=== PATIENT | male | born 1935 | race Caucasian/White ===

== ENCOUNTER → 2016-06-12 | Outpatient (CLI) | payer MEDICARE ==
[2016-06-12 10:44] LABS: CALCIUM 8.7 mg/dL (8.5-10.1); GFR 71.7
== END | disposition home or self-care (01) ==
LOC: LAB 10:16
PROVIDERS: ATTEND Internal Medicine
DX: R73.01 Impaired fasting glucose (principal)
CPT/HCPCS: 36415; 80048; 83036

== ENCOUNTER 2016-07-20 09:36 | Inpatient (IN) | payer MEDICARE ==
[~2016-07-20] VITALS: Ht 180.3 cm; Wt 96.2 kg
[2016-07-20] MEDS ORDERED: IV NORMAL SALINE 1000ML BAG 1,000 ML IV ONE (10:30)
[2016-07-20] MEDS ORDERED: ONDANSETRON PF 4 MG/2 ML VIAL. IV ONE (10:30)
[2016-07-20 10:33] LABS: BASO % 0 % (0-3); EOS % 0 % (0-3); HEMATOCRIT 47.8 % (39.0-53.0); HEMOGLOBIN 15.9 g/dL (13.0-17.5); LYMPH # 1.8 x10^3/uL (1.0-4.8); LYMPH % 12 % (24-48); MEAN CORPUSCULAR HEMOGLOBIN 30 pg (25-35); MEAN CORPUSCULAR HGB CONC 33 g/dL (31-37); MEAN CORPUSCULAR VOLUME 89 fL (79-100); MONO % 14 % (0-9); NEUT % 74 % (31-73); PLATELET COUNT 162 x10^3/uL (140-400); RED BLOOD COUNT 5.38 x10^6/uL (4.30-5.70); RED CELL DISTRIBUTION WIDTH 13.3 % (11.5-14.5)
--- NOTE | 2016-07-20 10:40 | EKG ---
[facility] [address] [place] [address] Test Date: 2016-07-20 Test Time: 09:54:56 Pat Name: JANET GIRON Department: Room: Gender: M Chocolate Dipper: : 1935 Requested By: HANNA AMANDA Order Number: [id number] Reading MD: Kisha Mandujano Measurements Intervals [place] Rate: 115 P: -9 UT: 188 QRS: -5 QRSD: 108 T: 27 QT: 290 QTc: 403 Interpretive Statements SINUS TACHYCARDIA VENTRICULAR PREMATURE COMPLEX(ES) LEFTWARD AXIS RI6.01 No previous ECG available for comparison Electronically Signed On 07-23-2016 18:35:15 CDT by Kisha Mandujano
[2016-07-20 10:44] LABS: INR 1.1 (0.8-1.1); PROTHROMBIN TIME PATIENT 13.6 SEC (11.7-14.0)
[2016-07-20 10:48] LABS: CALCIUM 8.7 mg/dL (8.5-10.1); CREATININE 1.1 mg/dL (0.7-1.3); GFR 64.2; POTASSIUM 4.1 mmol/L (3.5-5.1)
[2016-07-20 10:57] LABS: NEG OBC FOB NEG; POS OBC FOB POS
[2016-07-20 10:59] LABS: ALBUMIN 2.7 g/dL (3.4-5.0); ALBUMIN/GLOBULIN RATIO 0.7 (1.0-1.7); TOTAL BILIRUBIN 1.6 mg/dL (0.2-1.0); TOTAL PROTEIN 6.6 g/dL (6.4-8.2)
[2016-07-20] MEDS: FENTANYL PF 100 MCG/2 ML VIAL. IV PRN ×2 (11:20→14:31)
[2016-07-20] MEDS ORDERED: IOHEXOL 300 MG/ML 75 ML VIAL IV ONE (11:30)
[2016-07-20] MEDS ORDERED: CONTRAST GIVEN MC PRN (11:30)
[2016-07-20 12:54] LABS: BILIRUBIN,URINE NEGATIVE (NEG); GLUCOSE,URINE NEGATIVE (NEG); NITRITE,URINE NEGATIVE (NEG); PH,URINE 6.5; PROTEIN,URINE NEGATIVE (NEG-TRACE)
[2016-07-20 12:55] LABS: BACTERIA,URINE 0 /HPF (0-FEW); WBC,URINE 0 /HPF (0-4)
--- NOTE | 2016-07-20 13:13 | RAD ---
CT of the abdomen and pelvis with contrast, 07/20/2016: History: Abdominal pain and vomiting Multidetector CT imaging was performed following an IV bolus injection of iodinated contrast material. No oral contrast material was administered for this study. The gallbladder is surgically absent. No hepatic abnormality is seen. The pancreas is unremarkable. There is a 15 mm low-density mass arising from the anterior aspect of the left kidney. It demonstrates an internal CT number of 32 Hounsfield units. This is higher than a simple cyst. This may be a complicated cyst or solid mass. The kidneys show no evidence of obstruction. No adrenal abnormality is detected. Moderate aortoiliac calcific plaquing is present without evidence of aneurysm. No abdominal or pelvic adenopathy is seen. There are numerous diverticula scattered throughout the colon. There is mural thickening in the mid to distal sigmoid colon with considerable paracolic streaky inflammation. The findings suggest acute diverticulitis. No discrete paracolic abscess is identified. There is no evidence of bowel obstruction. No free air or free fluid is evident in the abdomen or pelvis. IMPRESSION: 1. Extensive colonic diverticulosis. 2. Mural thickening and paracolic inflammation in the mid to distal sigmoid colon compatible with acute diverticulitis. An underlying colonic neoplasm cannot be excluded. 3. Small left renal mass compatible with a complicated cyst versus a solid mass. PQRS Compliance Statement: One or more of the following individualized dose reduction techniques were utilized for this examination: 1. Automated exposure control 2. Adjustment of the mA and/or kV according to patient size 3. Use of iterative reconstruction technique
[2016-07-20] MEDS ORDERED: METRONIDAZOLE 500mg PREMIX 100 ML IV ONE (13:30)
[2016-07-20] MEDS ORDERED: CIPROFLOXACIN 400MG PREMIX 200 ML IV ONE (13:33)
[2016-07-20] MEDS ORDERED: ONDANSETRON PF 4 MG/2 ML VIAL. IV PRN (13:45)
--- NOTE | 2016-07-20 13:46 | PHYS DOC ---
Past Medical History Past Medical History: GERD, Hypertension, Other Additional Past Medical Histor: BPH Past Surgical History: Appendectomy, Cholecystectomy, Tonsillectomy, Other Additional Past Surgical Histo: COLON RESECTION Alcohol Use: None Drug Use: None Adult General Chief Complaint Chief Complaint: NAUSEA/VOMITING/DIARRHA HPI HPI Patient is a 80 year old male who presents with abdominal pain. Patient reports 2 day history of severe suprapubic abdominal pain. Reports associated nausea, vomiting 1 this morning, loose stools and dark stools this morning. Denies fevers or chills, hematemesis, dysuria or hematuria. Reports urinary frequency. 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 PCP is Dr. Segovia. Review of Systems Review of Systems Constitutional: Denies fever or chills Eyes: Denies change in visual acuity HENT: Denies nasal congestion or sore throat Respiratory: Denies cough or shortness of breath Cardiovascular: Denies chest pain or edema GI: Reports abdominal pain, nausea, vomiting, and diarrhea, denies bloody stools : Denies dysuria or hematuria Musculoskeletal: Denies back pain or joint pain Integument: Denies rash or skin lesions Neurologic: Denies headache, focal weakness or sensory changes Current Medications Current Medications Current Medications Medications (Trade) Dose Ordered Sig/Filomena Start Time Stop Time Status Last Admin Dose Admin Ciprofloxacin Lactate (Cipro 400mg Premix) 200 ml @ 200 mls/hr ONCE ONCE 07/20/16 13:33 07/20/16 14:32 Fentanyl Citrate (Fentanyl 2ml Vial) 50 mcg PRN Q15MIN PRN 07/20/16 10:30 07/21/16 10:29 07/20/16 11:20 50 MCG Info 1 each 1 each PRN DAILY PRN 07/20/16 11:30 07/22/16 11:29 Iohexol (Omnipaque 300 Mg/ml) 75 ml 1X ONCE 07/20/16 11:30 07/20/16 11:31 DC 07/20/16 12:25 75 ML Metronidazole 100 ml @ 100 mls/hr 1X ONCE 07/20/16 13:30 07/20/16 14:29 Morphine Sulfate 4 mg 4 mg PRN Q2HR PRN 07/20/16 13:45 07/21/16 13:44 UNV Ondansetron HCl (Zofran) 4 mg PRN Q8HRS PRN 07/20/16 13:45 07/21/16 13:44 UNV Sodium Chloride (Iv Sodium Chloride 0.9% 1000ml Bag) 1,000 ml @ 100 mls/hr Q10H 07/20/16 13:31 07/21/16 13:30 UNV Allergies Allergies Allergies Coded Allergies Type Severity Reaction Last Updated Verified No Known Drug Allergies 07/20/16 No Physical Exam Physical Exam Constitutional: Well developed, well nourished, appears uncomfortable, non- toxic appearance. HENT: Normocephalic, atraumatic, bilateral external ears normal, oropharynx moist, nose normal. Eyes: conjunctiva normal, no discharge. Neck: supple, no stridor. Cardiovascular: Tachycardic, regular, no murmurs, no edema. Lungs & Thorax: LCTAB, no wheezing, no respiratory distress. Abdomen: Normal bowel sounds, soft, suprapubic tenderness otherwise nontender, no rebound or guarding, no masses or pulsatile masses, nondistended. Skin: Warm, dry, no erythema, no rash. Back: No tenderness, no CVA tenderness. Extremities: No tenderness, no edema. Neurologic: Alert and oriented X 3, no focal deficits noted. Psychologic: Affect normal, judgement normal, mood normal. Current Patient Data Vital Signs Vital Signs Date Time Temp Pulse Resp B/P Pulse Ox O2 Delivery O2 Flow Rate FiO2 07/20/16 09:36 97.8 113 20 154/69 93 Room Air 97.8 Lab Values Laboratory Tests Test 07/20/16 10:14 07/20/16 12:10 07/20/16 12:20 White Blood Count 15.0x10^3/uL (4.0-11.0) H Red Blood Count 5.38x10^6/uL (4.30-5.70) Hemoglobin 15.9g/dL (13.0-17.5) Hematocrit 47.8% (39.0-53.0) Mean Corpuscular Volume 89fL (79-100) Mean Corpuscular Hemoglobin 30pg (25-35) Mean Corpuscular Hemoglobin Concent 33g/dL (31-37) Red Cell Distribution Width 13.3% (11.5-14.5) Platelet Count 162x10^3/uL (140-400) Neutrophils (%) (Auto) 74% (31-73) H Lymphocytes (%) (Auto) 12% (24-48) L Monocytes (%) (Auto) 14% (0-9) H Eosinophils (%) (Auto) 0% (0-3) Basophils (%) (Auto) 0% (0-3) Neutrophils # (Auto) 11.1x10^3uL (1.8-7.7) H Lymphocytes # (Auto) 1.8x10^3/uL (1.0-4.8) Monocytes # (Auto) 2.1x10^3/uL (0.0-1.1) H Eosinophils # (Auto) 0.0x10^3/uL (0.0-0.7) Basophils # (Auto) 0.0x10^3/uL (0.0-0.2) Prothrombin Time 13.6SEC (11.7-14.0) Prothrombin Time INR 1.1 (0.8-1.1) PTT 35SEC (24-38) Stool Occult Blood Negative (NEG) Sodium Level 138mmol/L (136-145) Potassium Level 4.1mmol/L (3.5-5.1) Chloride Level 101mmol/L (98-107) Carbon Dioxide Level 26mmol/L (21-32) Anion Gap 11 (6-14) Blood Urea Nitrogen 15mg/dL (8-26) Creatinine 1.1mg/dL (0.7-1.3) Estimated GFR (Cockcroft-Gault) 64.2 BUN/Creatinine Ratio 14 (6-20) Glucose Level 188mg/dL (70-99) H Calcium Level 8.7mg/dL (8.5-10.1) Total Bilirubin 1.6mg/dL (0.2-1.0) H Aspartate Amino Transferase (AST) 35U/L (15-37) Alanine Aminotransferase (ALT) 46U/L (16-63) Alkaline Phosphatase 101U/L (46-116) Troponin I Quantitative < 0.017ng/mL (0.000-0.055) Total Protein 6.6g/dL (6.4-8.2) Albumin 2.7g/dL (3.4-5.0) L Albumin/Globulin Ratio 0.7 (1.0-1.7) L Lactic Acid Level 1.4mmol/L (0.4-2.0) Urine Collection Type Unknown Urine Color Cecille Urine Clarity Clear Urine pH 6.5 Urine Specific [place] 1.025 Urine Protein Negativemg/dL (NEG-TRACE) Urine Glucose (UA) Negativemg/dL (NEG) Urine Ketones (Stick) Negativemg/dL (NEG) Urine Blood Negative (NEG) Urine Nitrite Negative (NEG) Urine Bilirubin Negative (NEG) Urine Urobilinogen Dipstick 1.0mg/dL (0.2 mg/dL) Urine Leukocyte Esterase Negative (NEG) Urine RBC 11-20/HPF (0-2) Urine WBC 0/HPF (0-4) Urine Bacteria 0/HPF (0-FEW) Urine Mucus Mod/LPF Laboratory Tests 07/20/16 10:14 Laboratory Tests 07/20/16 10:14 EKG EKG Interpreted by me: Sinus tachycardia rate 115, no acute ST or T wave changes, normal intervals, PVC [] Radiology/Procedures Radiology/Procedures PROCEDURE: ABD PELV W/ IV CONTRAST ONLY CT of the abdomen and pelvis with contrast, 07/20/2016: History: Abdominal pain and vomiting Multidetector CT imaging was performed following an IV bolus injection of iodinated contrast material. No oral contrast material was administered for this study. The gallbladder is surgically absent. No hepatic abnormality is seen. The pancreas is unremarkable. There is a 15 mm low-density mass arising from the anterior aspect of the left kidney. It demonstrates an internal CT number of 32 Hounsfield units. This is higher than a simple cyst. This may be a complicated cyst or solid mass. The kidneys show no evidence of obstruction. No adrenal abnormality is detected. Moderate aortoiliac calcific plaquing is present without evidence of aneurysm. No abdominal or pelvic adenopathy is seen. There are numerous diverticula scattered throughout the colon. There is mural thickening in the mid to distal sigmoid colon with considerable paracolic streaky inflammation. The findings suggest acute diverticulitis. No discrete paracolic abscess is identified. There is no evidence of bowel obstruction. No free air or free fluid is evident in the abdomen or pelvis. IMPRESSION: 1. Extensive colonic diverticulosis. 2. Mural thickening and paracolic inflammation in the mid to distal sigmoid colon compatible with acute diverticulitis. An underlying colonic neoplasm cannot be excluded. 3. Small left renal mass compatible with a complicated cyst versus a solid mass. PQRS Compliance Statement: One or more of the following individualized dose reduction techniques were utilized for this examination: 1. Automated exposure control 2. Adjustment of the mA and/or kV according to patient size 3. Use of iterative reconstruction technique DICTATED and SIGNED BY: CJ BEST MD DATE: 07/20/16 1031[] Course & Med Decision Making Course & Med Decision Making Pertinent Labs and Imaging studies reviewed. (See chart for details) Patient presents with abdominal pain and vomiting. Administered IV fluids, Zofran, pain medication. Obtained labs and CT. Found to have diverticulitis. Administered Cipro and Flagyl, recommended admission to the hospital for further evaluation. Patient agrees with plan of care. Discussed with Dr. Guerra who agrees to admit to inpatient status. GI consult to Dr. Diop. Patient admitted in stable condition. [] Dragon Disclaimer Dragon Disclaimer This electronic medical record was generated, in whole or in part, using a voice recognition dictation system. Departure Departure Impression: Primary Impression: Abdominal pain Additional Impressions: Acute diverticulitis Nausea & vomiting Disposition: ADMITTED INPATIENT Admitting Physician: Seema Guerra Condition: STABLE Problem Qualifiers HANNA AMANDA MD Jul 20, 2016 13:45
--- NOTE | 2016-07-20 14:30 | ACF ---
Admission Forms Criteria ABDOMINAL PAIN Clinical Indications for Admission to Inpatient Care (Place 'X' for any and all applicable criteria): Admission is indicated for ANY ONE of the following(1)(2)(3)(4)(5): [X]I. Inpatient admission required rather than observation care (Also use Abdominal Pain: Observation Care, as appropriate) because of ANY ONE of the following: [ ]a) Severe pain requiring acute inpatient management [X]b) Identification of etiology/finding that requires inpatient care (eg, aortic dissection, free air) [ ]c) Absent bowel sounds with complete ileus(6) [ ]d) Suspected toxic megacolon [ ]e) Severe electrolyte abnormalities requiring inpatient care [ ]f) High fever or infection requiring inpatient admission as indicated by ANY ONE of following(7)(8): [ ] i) Appropriate outpatient or observational care antimicrobial treatment unavailable, not effective, or not feasible [ ] ii) Documented bacteremia [ ] iii) Temperature > 104.9 degrees F (oral) [ ] iv) T >103.1 F (oral) or < 96.8 F(rectal) that does not respond to all emergency treatment measures [ ]g) Signs of intestinal obstruction [B] [ ]h) Hemodynamic instability [ ]i) IV fluid to replace significant ongoing losses (greater than 3 L/m2 per day) (12)(13) [ ]j) Percutaneous or open drainage (eg, abscess, biliary tract ) procedures [ ]k) Parenteral nutrition regimen that must be implemented on inpatient basis [ ]l) Other condition,treatment or monitoring requiring inpatient admission. [ ]II. Peritoneal signs present [ ]III. Surgery needed that cannot be performed on an ambulatory basis. [ ]IV. Evaluation requires patient to not eat or drink for extended period ( eg, more than 24 hours). [ ]V. Contraindications and/or Inappropriate clinical situations for Observational Care in patients with abdominal pain, when ANY ONE of the following is required: [ ]a) Thorough evaluation is required to prevent catastrophic events due to delays in diagnosing (e.g.Mesenteric ischemia) 1,3 [ ]b) Patient with severe pathology or with chronic symptoms unlikely to improve in the ED stay (3) [ ]. General contraindications and/or Inappropriate clinical situations for Observational Care in patients with abdominal pain, when ANY ONE of the following is required: [ ]a) Prediction of prolongation of LOS based on ANY ONE of the following may be considered as a contraindication for observational care 2, 3, 4, 5, 6, 7, 8, 9, 10, 11 [ ]i) Age > 65 yrs. [ ]ii) Patient arriving by ambulance [ ]iii) Patient with high acuity [ ]iv) Patient requiring vital sign monitoring [ ]v) Patient on IV medication [ ]b) Systolic blood pressures 180mmHg 3,12 [ ]c) Patient with altered mental status including delirium and other alteration of consciousness, (3) [ ]d) Patient whose discharge disposition will be to a senior living home or rehabilitation home should not be managed in Emergency Department Observation Unit. CMS rule requires 3 days hospital stay before such placement.3,13 [ ]e) Patient with failure to thrive due to broad array of etiologies 3,16,17 [ ]f) Inability to ambulate 3,14 Extended stay beyond goal length of stay may be needed for(2)(3): [ ]a) Persistent abdominal pain with suspected intra-abdominal process [ ]b) Diagnosed condition requiring continued stay (e.g., pancreatitis, complicated diverticulitis) [ ]c) Surgery (e.g., colectomy) The original [facility] content created by [employer] has been revised. The portions of the content which have been revised are identified through the use of italic text or in bold, and [facility] has neither reviewed nor approved the modified material.All other unmodified content is copyright [employer]. Please see references footnoted in the original [facility] edition 2016 Admission Criteria Met?: Yes CATIE DALEY Jul 20, 2016 14:30
[2016-07-20] MEDS: IV NORMAL SALINE 1000ML BAG 1,000 ML IV SCH (14:36)
[2016-07-20 16:00] VITALS: BP 151/61
--- NOTE | 2016-07-20 16:05 | PDOC ---
PROGRESS NOTES Subjective Subjective Pt. with diverticulitis Objective Objective Vital Signs Date Time Temp Pulse Resp B/P Pulse Ox O2 Delivery O2 Flow Rate FiO2 07/20/16 09:36 97.8 113 20 154/69 93 Room Air 97.8 Physical Exam Physical Exam right renal lesion on CT Assessment Assessment right renal lesion bph microhematuria Problems Medical Problems: (1) Abdominal pain Status: Acute (2) Acute diverticulitis Status: Acute (3) Nausea & vomiting Status: Acute Plan Plan of Care continue flomax and proscar f/[place] [place] the next month for follow up of left renal mass and microhematuria Comment Review of Relevant I have reviewed the following items orion (where applicable) has been applied. Labs Laboratory Tests Test 07/20/16 10:14 07/20/16 12:10 07/20/16 12:20 White Blood Count 15.0x10^3/uL (4.0-11.0) Red Blood Count 5.38x10^6/uL (4.30-5.70) Hemoglobin 15.9g/dL (13.0-17.5) Hematocrit 47.8% (39.0-53.0) Mean Corpuscular Volume 89fL (79-100) Mean Corpuscular Hemoglobin 30pg (25-35) Mean Corpuscular Hemoglobin Concent 33g/dL (31-37) Red Cell Distribution Width 13.3% (11.5-14.5) Platelet Count 162x10^3/uL (140-400) Neutrophils (%) (Auto) 74% (31-73) Lymphocytes (%) (Auto) 12% (24-48) Monocytes (%) (Auto) 14% (0-9) Eosinophils (%) (Auto) 0% (0-3) Basophils (%) (Auto) 0% (0-3) Neutrophils # (Auto) 11.1x10^3uL (1.8-7.7) Lymphocytes # (Auto) 1.8x10^3/uL (1.0-4.8) Monocytes # (Auto) 2.1x10^3/uL (0.0-1.1) Eosinophils # (Auto) 0.0x10^3/uL (0.0-0.7) Basophils # (Auto) 0.0x10^3/uL (0.0-0.2) Prothrombin Time 13.6SEC (11.7-14.0) Prothromb Time International Ratio 1.1 (0.8-1.1) Activated Partial Thromboplast Time 35SEC (24-38) Stool Occult Blood Negative (NEG) Sodium Level 138mmol/L (136-145) Potassium Level 4.1mmol/L (3.5-5.1) Chloride Level 101mmol/L (98-107) Carbon Dioxide Level 26mmol/L (21-32) Anion Gap 11 (6-14) Blood Urea Nitrogen 15mg/dL (8-26) Creatinine 1.1mg/dL (0.7-1.3) Estimated GFR (Cockcroft-Gault) 64.2 BUN/Creatinine Ratio 14 (6-20) Glucose Level 188mg/dL (70-99) Calcium Level 8.7mg/dL (8.5-10.1) Total Bilirubin 1.6mg/dL (0.2-1.0) Aspartate Amino Transf (AST/SGOT) 35U/L (15-37) Alanine Aminotransferase (ALT/SGPT) 46U/L (16-63) Alkaline Phosphatase 101U/L (46-116) Troponin I Quantitative < 0.017ng/mL (0.000-0.055) Total Protein 6.6g/dL (6.4-8.2) Albumin 2.7g/dL (3.4-5.0) Albumin/Globulin Ratio 0.7 (1.0-1.7) Lactic Acid Level 1.4mmol/L (0.4-2.0) Urine Collection Type Unknown Urine Color Cecille Urine Clarity Clear Urine pH 6.5 Urine Specific [place] 1.025 Urine Protein Negativemg/dL (NEG-TRACE) Urine Glucose (UA) Negativemg/dL (NEG) Urine Ketones (Stick) Negativemg/dL (NEG) Urine Blood Negative (NEG) Urine Nitrite Negative (NEG) Urine Bilirubin Negative (NEG) Urine Urobilinogen Dipstick 1.0mg/dL (0.2 mg/dL) Urine Leukocyte Esterase Negative (NEG) Urine RBC 11-20/HPF (0-2) Urine WBC 0/HPF (0-4) Urine Bacteria 0/HPF (0-FEW) Urine Mucus Mod/LPF Laboratory Tests Test 07/20/16 10:14 07/20/16 12:10 07/20/16 12:20 White Blood Count 15.0x10^3/uL (4.0-11.0) Red Blood Count 5.38x10^6/uL (4.30-5.70) Hemoglobin 15.9g/dL (13.0-17.5) Hematocrit 47.8% (39.0-53.0) Mean Corpuscular Volume 89fL (79-100) Mean Corpuscular Hemoglobin 30pg (25-35) Mean Corpuscular Hemoglobin Concent 33g/dL (31-37) Red Cell Distribution Width 13.3% (11.5-14.5) Platelet Count 162x10^3/uL (140-400) Neutrophils (%) (Auto) 74% (31-73) Lymphocytes (%) (Auto) 12% (24-48) Monocytes (%) (Auto) 14% (0-9) Eosinophils (%) (Auto) 0% (0-3) Basophils (%) (Auto) 0% (0-3) Neutrophils # (Auto) 11.1x10^3uL (1.8-7.7) Lymphocytes # (Auto) 1.8x10^3/uL (1.0-4.8) Monocytes # (Auto) 2.1x10^3/uL (0.0-1.1) Eosinophils # (Auto) 0.0x10^3/uL (0.0-0.7) Basophils # (Auto) 0.0x10^3/uL (0.0-0.2) Prothrombin Time 13.6SEC (11.7-14.0) Prothromb Time International Ratio 1.1 (0.8-1.1) Activated Partial Thromboplast Time 35SEC (24-38) Stool Occult Blood Negative (NEG) Sodium Level 138mmol/L (136-145) Potassium Level 4.1mmol/L (3.5-5.1) Chloride Level 101mmol/L (98-107) Carbon Dioxide Level 26mmol/L (21-32) Anion Gap 11 (6-14) Blood Urea Nitrogen 15mg/dL (8-26) Creatinine 1.1mg/dL (0.7-1.3) Estimated GFR (Cockcroft-Gault) 64.2 BUN/Creatinine Ratio 14 (6-20) Glucose Level 188mg/dL (70-99) Calcium Level 8.7mg/dL (8.5-10.1) Total Bilirubin 1.6mg/dL (0.2-1.0) Aspartate Amino Transf (AST/SGOT) 35U/L (15-37) Alanine Aminotransferase (ALT/SGPT) 46U/L (16-63) Alkaline Phosphatase 101U/L (46-116) Troponin I Quantitative < 0.017ng/mL (0.000-0.055) Total Protein 6.6g/dL (6.4-8.2) Albumin 2.7g/dL (3.4-5.0) Albumin/Globulin Ratio 0.7 (1.0-1.7) Lactic Acid Level 1.4mmol/L (0.4-2.0) Urine Collection Type Unknown Urine Color Cecille Urine Clarity Clear Urine pH 6.5 Urine Specific [place] 1.025 Urine Protein Negativemg/dL (NEG-TRACE) Urine Glucose (UA) Negativemg/dL (NEG) Urine Ketones (Stick) Negativemg/dL (NEG) Urine Blood Negative (NEG) Urine Nitrite Negative (NEG) Urine Bilirubin Negative (NEG) Urine Urobilinogen Dipstick 1.0mg/dL (0.2 mg/dL) Urine Leukocyte Esterase Negative (NEG) Urine RBC 11-20/HPF (0-2) Urine WBC 0/HPF (0-4) Urine Bacteria 0/HPF (0-FEW) Urine Mucus Mod/LPF Medications Current Medications Sodium Chloride (Iv Sodium Chloride 0.9% 1000ml Bag) 1,000 ml @ 1,000 mls/hr 1X ONCE IV Last administered on 07/20/16 11:18; Admin Dose 1,000 MLS/HR; Start 07/20/16 at 10:30; Stop 07/20/16 at 11:29; Status DC Ondansetron HCl (Zofran) 4 mg 1X ONCE IV Last administered on 07/20/16 11:18 ; Admin Dose 4 MG; Start 07/20/16 at 10:30; Stop 07/20/16 at 10:42; Status DC Fentanyl Citrate (Fentanyl 2ml Vial) 50 mcg PRN Q15MIN PRN IV PAIN GREATER THAN 3/10 Last administered on 07/20/16 14:31; Admin Dose 50 MCG; Start at 10:30; Stop 07/21/16 at 10:29 Iohexol (Omnipaque 300 Mg/ml) 75 ml 1X ONCE IV Last administered on 07/20/16 12:25; Admin Dose 75 ML; Start 07/20/16 at 11:30; Stop 07/20/16 at 11:31; Status DC Info 1 each 1 each PRN DAILY PRN MC SEE COMMENTS; Start 07/20/16 at 11:30; Stop 07/22/16 at 11:29 Ciprofloxacin Lactate 200 ml @ 200 mls/hr Q12HR IV ; Start 07/20/16 at 22:00 Metronidazole 100 ml @ 100 mls/hr 1X ONCE IV Last administered on 07/20/16 14:36; Admin Dose 100 MLS/HR; Start 07/20/16 at 13:30; Stop 07/20/16 at 14:29; Status DC Ciprofloxacin Lactate (Cipro 400mg Premix) 200 ml @ 200 mls/hr ONCE ONCE IV ; Start 07/20/16 at 13:33; Stop 07/20/16 at 14:32; Status DC Ondansetron HCl (Zofran) 4 mg PRN Q8HRS PRN IV NAUSEA/VOMITING; Start 07/20/16 at 13:45; Stop 07/21/16 at 13:44 Morphine Sulfate 4 mg 4 mg PRN Q2HR PRN IV PAIN; Start 07/20/16 at 13:45; Stop 07/21/16 at 13:44 Sodium Chloride 1,000 ml @ 100 mls/hr Q10H IV Last administered on 07/20/16 14:36; Admin Dose 100 MLS/HR; Start 07/20/16 at 13:31; Stop 07/21/16 at 13:30 Metronidazole (FLAGYL 500Mmg PREMIX) 100 ml @ 100 mls/hr Q8HRS IV ; Start 07/20 at 16:00 Vitals/I & O Vital Sign - Last 24 Hours 07/20/16 09:36 Temp 97.8 97.8 Pulse 113 Resp 20 B/P 154/69 Pulse Ox 93 O2 Delivery Room Air LOUIS MURO MD Jul 20, 2016 16:05
[2016-07-20] MEDS: METRONIDAZOLE 500mg PREMIX 100 ML IV SCH ×2 (16:06→22:07)
--- NOTE | 2016-07-20 16:09 | PDOC2 ---
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 Reports lower abd pain, weakness, fevers, loose stools (last one was dark), and n/v for a few days. GI history significant for diverticulitis, GERD (controlled on omeprazole 20mg QD) , and previous GI bleed. Previous EGD, colonoscopy (believes last 11 months ago ), SBCE, and small bowel resection (?AVMs). CT A/P showed extensive colonic diverticulosis, mural thickening and paracolic inflammation in the mid to distal sigmoid colon c/w acute diverticulitis, and small left renal mass (cyst vs. solid mass). Given Cipro and Flagyl in the ER. Urology and ID also asked to see. PMH: PMH: arrhythmia, depression, GERD, diverticulitis, BPH, GI bleed w/ small bowel resection (?AVMs), appendectomy, cholecystectomy, tonsillectomy FH: Family History: No pertinent hx Social History: Smoke: No ALCOHOL: none Drugs: None ROS: GEN: +fevers HEENT: Denies blurred vision, sore throat CV: Denies chest pain RESP: Denies shortness of air, cough GI: Per HPI : Denies hematuria, dysuria ENDO: Denies weight changes NEURO: Denies confusion, dizziness MSK: +weakness SKIN: Denies jaundice, pruritus VItals: Vitals: Vital Signs Date Time Temp Pulse Resp B/P Pulse Ox O2 Delivery O2 Flow Rate FiO2 07/20/16 09:36 97.8 113 20 154/69 93 Room Air 97.8 Labs: Labs: Laboratory Tests Test 07/20/16 10:14 07/20/16 12:10 07/20/16 12:20 White Blood Count 15.0x10^3/uL (4.0-11.0) Red Blood Count 5.38x10^6/uL (4.30-5.70) Hemoglobin 15.9g/dL (13.0-17.5) Hematocrit 47.8% (39.0-53.0) Mean Corpuscular Volume 89fL (79-100) Mean Corpuscular Hemoglobin 30pg (25-35) Mean Corpuscular Hemoglobin Concent 33g/dL (31-37) Red Cell Distribution Width 13.3% (11.5-14.5) Platelet Count 162x10^3/uL (140-400) Neutrophils (%) (Auto) 74% (31-73) Lymphocytes (%) (Auto) 12% (24-48) Monocytes (%) (Auto) 14% (0-9) Eosinophils (%) (Auto) 0% (0-3) Basophils (%) (Auto) 0% (0-3) Neutrophils # (Auto) 11.1x10^3uL (1.8-7.7) Lymphocytes # (Auto) 1.8x10^3/uL (1.0-4.8) Monocytes # (Auto) 2.1x10^3/uL (0.0-1.1) Eosinophils # (Auto) 0.0x10^3/uL (0.0-0.7) Basophils # (Auto) 0.0x10^3/uL (0.0-0.2) Prothrombin Time 13.6SEC (11.7-14.0) Prothromb Time International Ratio 1.1 (0.8-1.1) Activated Partial Thromboplast Time 35SEC (24-38) Stool Occult Blood Negative (NEG) Sodium Level 138mmol/L (136-145) Potassium Level 4.1mmol/L (3.5-5.1) Chloride Level 101mmol/L (98-107) Carbon Dioxide Level 26mmol/L (21-32) Anion Gap 11 (6-14) Blood Urea Nitrogen 15mg/dL (8-26) Creatinine 1.1mg/dL (0.7-1.3) Estimated GFR (Cockcroft-Gault) 64.2 BUN/Creatinine Ratio 14 (6-20) Glucose Level 188mg/dL (70-99) Calcium Level 8.7mg/dL (8.5-10.1) Total Bilirubin 1.6mg/dL (0.2-1.0) Aspartate Amino Transf (AST/SGOT) 35U/L (15-37) Alanine Aminotransferase (ALT/SGPT) 46U/L (16-63) Alkaline Phosphatase 101U/L (46-116) Troponin I Quantitative < 0.017ng/mL (0.000-0.055) Total Protein 6.6g/dL (6.4-8.2) Albumin 2.7g/dL (3.4-5.0) Albumin/Globulin Ratio 0.7 (1.0-1.7) Lactic Acid Level 1.4mmol/L (0.4-2.0) Urine Collection Type Unknown Urine Color Cecille Urine Clarity Clear Urine pH 6.5 Urine Specific [place] 1.025 Urine Protein Negativemg/dL (NEG-TRACE) Urine Glucose (UA) Negativemg/dL (NEG) Urine Ketones (Stick) Negativemg/dL (NEG) Urine Blood Negative (NEG) Urine Nitrite Negative (NEG) Urine Bilirubin Negative (NEG) Urine Urobilinogen Dipstick 1.0mg/dL (0.2 mg/dL) Urine Leukocyte Esterase Negative (NEG) Urine RBC 11-20/HPF (0-2) Urine WBC 0/HPF (0-4) Urine Bacteria 0/HPF (0-FEW) Urine Mucus Mod/LPF Allergies: Coded Allergies: No Known Drug Allergies (Unverified , 07/20/16) Medications: Current Medications Medications (Trade) Dose Ordered Sig/Filomena Route PRN Reason Start Time Stop Time Status Last Admin Dose Admin Sodium Chloride (Iv Sodium Chloride 0.9% 1000ml Bag) 1,000 ml @ 1,000 mls/hr 1X ONCE IV 07/20/16 10:30 07/20/16 11:29 DC 07/20/16 11:18 Ondansetron HCl (Zofran) 4 mg 1X ONCE IV 07/20/16 10:30 07/20/16 10:42 DC 07/20/16 11:18 Fentanyl Citrate (Fentanyl 2ml Vial) 50 mcg PRN Q15MIN PRN IV PAIN GREATER THAN 06/3007/20/16 10:30 07/21/16 10:29 07/20/16 14:31 Iohexol 75 ml 75 ml 1X ONCE IV 07/20/16 11:30 07/20/16 11:31 DC 07/20/16 12:25 Metronidazole 100 ml @ 100 mls/hr 1X ONCE IV 07/20/16 13:30 07/20/16 14:29 DC 07/20/16 14:36 Sodium Chloride (Iv Sodium Chloride 0.9% 1000ml Bag) 1,000 ml @ 100 mls/hr Q10H IV 07/20/16 13:31 07/21/16 13:30 07/20/16 14:36 Imaging: Imaging: CT A/P w/ IV contrast IMPRESSION: 1. Extensive colonic diverticulosis. 2. Mural thickening and paracolic inflammation in the mid to distal sigmoid colon compatible with acute diverticulitis. An underlying colonic neoplasm cannot be excluded. 3. Small left renal mass compatible with a complicated cyst versus a solid mass. PE: GEN: NAD HEENT: Atraumatic, PERRL LUNGS: CTAB anteriorly w/ nasal cannula HEART: RRR ABD: BS+, LLQ/suprapubic/RLQ tenderness to light palpation EXTREMITY: No edema SKIN: No rashes, no jaundice NEURO/PSYCH: A & O 3 A/P: A/P: Sigmoid diverticulitis -a few days of lower abd pain, n/v, weakness -CT as above H/o GI bleed w/ small bowel resection Renal lesion Leukocytosis -- Continue IV atbx. Is NPO for now. Will review records from the office re: previous 'scopes/GI workup. VINOD FOSTER Jul 20, 2016 16:09
--- NOTE | 2016-07-20 16:22 | HP ---
ADMIT DATE: 07/20/2016 CHIEF COMPLAINT: Abdominal pain. 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 Today, presents with nausea, vomiting, abdominal pain and diarrhea, it has been occurring for a couple of days, it is in the left side of his lower abdomen. He has had some dark stools, but we did guaiac here in the ER, it is negative for blood. He denies any fevers. He states he may have had the same disease 10 years ago when I admitted him then. It appears he probably has diverticulitis. CAT scan is showing diverticulosis with inflammation and edema. There is also a small renal mass versus a cyst. We planned to admit the patient, give him some IV antibiotics. Consult GI and genitourinary medicine for a second opinion. PAST MEDICAL HISTORY: Hypertension, GERD, probable diverticulitis and diverticulosis, appendectomy, cholecystectomy, tonsillectomy, previous colon resection. ALLERGIES: None. FAMILY HISTORY: Diabetes. SOCIAL HISTORY: He does not drink, smoke or take drugs. 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 MEDICATIONS: Reviewed, please refer to the MRAD. REVIEW OF SYSTEMS: GENERAL: No history of weight change, weakness or fevers. SKIN: No bruising, hair changes or rashes. EYES: No blurred, double or loss of vision. NOSE AND THROAT: No history of nosebleeds, hoarseness or sore throat. HEART: No history of palpitations, chest pain or shortness of breath on exertion. LUNGS: Denies cough, hemoptysis, wheezing or shortness of breath. GASTROINTESTINAL: He complains of abdominal pain, nausea, vomiting and diarrhea. GENITOURINARY: No history of frequency, urgency, hesitancy or nocturia. NEUROLOGIC: Denies history of numbness, tingling, tremor or weakness. PSYCHIATRIC: No history of panic, anxiety or depression. ENDOCRINE: No history of heat or cold intolerance, polyuria or polydipsia. EXTREMITIES: Denies muscle weakness, joint pain, pain on walking or stiffness. PHYSICAL EXAMINATION: VITAL SIGNS: Temperature afebrile at 97.8, pulse 113, respirations 20, blood pressure 154/69, O2 sat 93% on room air. GENERAL: He is alert, cooperative. He has a friend present. His friend is a very good support for him. HEART: Distant S1, S2, a little tachycardiac at times. LUNGS: Clear. ABDOMEN: Soft. Decreased bowel sounds, tender. EXTREMITIES: No edema. SKIN: No rashes. PSYCHIATRIC: Stable. VASCULAR: Good capillary refill. ENDOCRINE: No thyromegaly. LYMPHATICS: No cervical nodes. HEMATOPOIETIC: No bruising. LABORATORY DATA: White count 15, hemoglobin 15.9, platelets 162. Electrolytes normal other than a glucose of 188, total bilirubin is 1.6. Troponin is 0. Albumin low at 2.7. ASSESSMENT AND PLAN: Diverticulitis with the incidental finding of hyperbilirubinemia, hyperglycemia and renal mass versus a cyst. The patient is being admitted. We will give him IV fluids, IV Flagyl, IV ciprofloxacin and consult Dr. Diop, consult Dr. Otero regarding the renal mass. Frequent labs, physical therapy, p.r.n. narcotics, sliding scale insulin. We will keep him n.p.o. for now, but I hope to start clear liquid diet soon, p.r.n. Zofran and cardiac monitoring. YANIRA HARRELL DO DR: ALICIA/jarred JOB#: [id number] / [id number]
[2016-07-20] MEDS: MORPHINE SULFATE 4 MG/ML DISP.SYRIN. IV PRN ×2 (17:26→20:27)
[2016-07-20 19:00] VITALS: BP 117/59
[2016-07-20] MEDS: CIPROFLOXACIN 400MG PREMIX 200 ML IV SCH (22:07)
[2016-07-20 23:00] VITALS: BP 117/60
[2016-07-21] MEDS: MORPHINE SULFATE 4 MG/ML DISP.SYRIN. IV PRN ×2 (00:35→06:23)
[2016-07-21] MEDS: IV NORMAL SALINE 1000ML BAG 1,000 ML IV SCH ×2 (02:45→10:52)
[2016-07-21 03:00] VITALS: BP 128/59
[2016-07-21 04:58] LABS: BASO % 0 % (0-3); EOS % 1 % (0-3); HEMATOCRIT 39.6 % (39.0-53.0); HEMOGLOBIN 13.2 g/dL (13.0-17.5); LYMPH # 1.4 x10^3/uL (1.0-4.8); LYMPH % 16 % (24-48); MEAN CORPUSCULAR HEMOGLOBIN 30 pg (25-35); MEAN CORPUSCULAR HGB CONC 33 g/dL (31-37); MEAN CORPUSCULAR VOLUME 90 fL (79-100); MONO % 12 % (0-9); NEUT % 71 % (31-73); PLATELET COUNT 116 x10^3/uL (140-400); RED BLOOD COUNT 4.38 x10^6/uL (4.30-5.70); RED CELL DISTRIBUTION WIDTH 13.4 % (11.5-14.5); WHITE BLOOD COUNT 8.7 x10^3/uL (4.0-11.0)
[2016-07-21 05:27] LABS: CALCIUM 7.8 mg/dL (8.5-10.1); CREATININE 0.9 mg/dL (0.7-1.3); POTASSIUM 3.7 mmol/L (3.5-5.1)
[2016-07-21] MEDS: METRONIDAZOLE 500mg PREMIX 100 ML IV SCH ×3 (06:22→23:40)
[2016-07-21 07:00] VITALS: BP 119/54
--- NOTE | 2016-07-21 08:18 | CONS ---
DATE OF CONSULTATION: 07/20/2016 LOCATION: The patient is in room 420. HISTORY OF PRESENT ILLNESS: The patient is a very pleasant 80-year-old white male who was admitted with abdominal pain, found to have diverticulitis. The patient also on CT scan was noted to have a left renal lesion and therefore, Urology was consulted. The patient has a history of BPH. He is on Flomax twice a day and Proscar once a day. He is a regular patient of Dr. Martin Root from [facility]. The patient saw Dr. Root last month and was started on the Proscar for his lower urinary tract symptoms secondary to BPH. The patient has never had any urologic operations. PAST MEDICAL HISTORY: Significant for the BPH, GERD, hypertension. He has had previous appendectomy, cholecystectomy, tonsillectomy and colon resection in the past. He started to have symptoms of diverticulitis 2 days ago. LABORATORY DATA: His white count is 15,000. Creatinine is 1.1. Urine showed 11-20 red blood cells, no white cells, no bacteria. CT abdomen and pelvis with contrast showed a 15 mm low density mass arising from the anterior aspect of the left kidney, 32 Hounsfield units, which is higher than a simple cyst, but cannot discern whether it is either complicated cyst versus solid mass, in talking with Radiology, in the future, the patient will just need a CT of kidneys with renal mass protocol to further define the lesion. PHYSICAL EXAMINATION: ABDOMEN: The patient with lower mid abdominal tenderness secondary to his diverticulitis. GENITOURINARY: Testes are descended bilaterally, nontender, nonswollen. Phallus within normal limits. RECTAL: He has good sphincter tone. Prostate smooth, nontender, without nodules, overall size 25 grams. PLAN: I talked with the patient concerning his findings and right now, we will just have him treated for the diverticulitis, have him continue with his Flomax twice a day and Proscar once a day and then I recommended that he follow up with his regular urologist, Dr. Martin Root of [facility] in the next month for followup of left renal lesion with probable renal mass protocol CT and to recheck his urine to make sure his microhematuria has resolved and if not, to have that worked up by Dr. Root and then proceed accordingly. I certainly appreciate being allowed to participate in this patient's care. LOUIS MURO MD DR: ADAM/jarred JOB#: [id number] / [id number] YANIRA Pulido DAVID MD
--- NOTE | 2016-07-21 09:27 | PDOC ---
PROGRESS NOTES Chief Complaint Chief Complaint CC: Abdominal pain A/P Sigmoid diverticulitis Plan NPO IV Hydration IV Morphine prn for pain IV Zofran IV Flagyl ID FOLLOWING Vitals Vitals Vital Signs Date Time Temp Pulse Resp B/P Pulse Ox O2 Delivery O2 Flow Rate FiO2 07/21/16 07:00 98.1 65 20 119/54 94 Room Air 98.1 07/20/16 16:30 2.0 Physical Exam General: Alert, Oriented X3 Heart: Normal S1, Normal S2 Lungs: Clear Abdomen: Normal bowel sounds, Soft Labs LABS Laboratory Tests Test 07/20/16 10:14 07/20/16 12:10 07/20/16 12:20 07/21/16 04:15 White Blood Count 15.0x10^3/uL (4.0-11.0) 8.7x10^3/uL (4.0-11.0) Red Blood Count 5.38x10^6/uL (4.30-5.70) 4.38x10^6/uL (4.30-5.70) Hemoglobin 15.9g/dL (13.0-17.5) 13.2g/dL (13.0-17.5) Hematocrit 47.8% (39.0-53.0) 39.6% (39.0-53.0) Mean Corpuscular Volume 89fL (79-100) 90fL (79-100) Mean Corpuscular Hemoglobin 30pg (25-35) 30pg (25-35) Mean Corpuscular Hemoglobin Concent 33g/dL (31-37) 33g/dL (31-37) Red Cell Distribution Width 13.3% (11.5-14.5) 13.4% (11.5-14.5) Platelet Count 162x10^3/uL (140-400) 116x10^3/uL (140-400) Neutrophils (%) (Auto) 74% (31-73) 71% (31-73) Lymphocytes (%) (Auto) 12% (24-48) 16% (24-48) Monocytes (%) (Auto) 14% (0-9) 12% (0-9) Eosinophils (%) (Auto) 0% (0-3) 1% (0-3) Basophils (%) (Auto) 0% (0-3) 0% (0-3) Neutrophils # (Auto) 11.1x10^3uL (1.8-7.7) 6.2x10^3uL (1.8-7.7) Lymphocytes # (Auto) 1.8x10^3/uL (1.0-4.8) 1.4x10^3/uL (1.0-4.8) Monocytes # (Auto) 2.1x10^3/uL (0.0-1.1) 1.0x10^3/uL (0.0-1.1) Eosinophils # (Auto) 0.0x10^3/uL (0.0-0.7) 0.1x10^3/uL (0.0-0.7) Basophils # (Auto) 0.0x10^3/uL (0.0-0.2) 0.0x10^3/uL (0.0-0.2) Prothrombin Time 13.6SEC (11.7-14.0) Prothromb Time International Ratio 1.1 (0.8-1.1) Activated Partial Thromboplast Time 35SEC (24-38) Stool Occult Blood Negative (NEG) Sodium Level 138mmol/L (136-145) 140mmol/L (136-145) Potassium Level 4.1mmol/L (3.5-5.1) 3.7mmol/L (3.5-5.1) Chloride Level 101mmol/L (98-107) 107mmol/L (98-107) Carbon Dioxide Level 26mmol/L (21-32) 25mmol/L (21-32) Anion Gap 11 (6-14) 8 (6-14) Blood Urea Nitrogen 15mg/dL (8-26) 14mg/dL (8-26) Creatinine 1.1mg/dL (0.7-1.3) 0.9mg/dL (0.7-1.3) Estimated GFR (Cockcroft-Gault) 64.2 81.0 BUN/Creatinine Ratio 14 (6-20) Glucose Level 188mg/dL (70-99) 101mg/dL (70-99) Calcium Level 8.7mg/dL (8.5-10.1) 7.8mg/dL (8.5-10.1) Total Bilirubin 1.6mg/dL (0.2-1.0) Aspartate Amino Transf (AST/SGOT) 35U/L (15-37) Alanine Aminotransferase (ALT/SGPT) 46U/L (16-63) Alkaline Phosphatase 101U/L (46-116) Troponin I Quantitative < 0.017ng/mL (0.000-0.055) Total Protein 6.6g/dL (6.4-8.2) Albumin 2.7g/dL (3.4-5.0) Albumin/Globulin Ratio 0.7 (1.0-1.7) Lactic Acid Level 1.4mmol/L (0.4-2.0) Urine Collection Type Unknown Urine Color Cecille Urine Clarity Clear Urine pH 6.5 Urine Specific [place] 1.025 Urine Protein Negativemg/dL (NEG-TRACE) Urine Glucose (UA) Negativemg/dL (NEG) Urine Ketones (Stick) Negativemg/dL (NEG) Urine Blood Negative (NEG) Urine Nitrite Negative (NEG) Urine Bilirubin Negative (NEG) Urine Urobilinogen Dipstick 1.0mg/dL (0.2 mg/dL) Urine Leukocyte Esterase Negative (NEG) Urine RBC 11-20/HPF (0-2) Urine WBC 0/HPF (0-4) Urine Bacteria 0/HPF (0-FEW) Urine Mucus Mod/LPF Assessment and Plan Assessmemt and Plan Problems Medical Problems: (1) Abdominal pain Status: Acute (2) Acute diverticulitis Status: Acute (3) Nausea & vomiting Status: Acute Problems: Comment Review of Relevant I have reviewed the following items orion (where applicable) has been applied. Labs Laboratory Tests Test 07/20/16 10:14 07/20/16 12:10 07/20/16 12:20 07/21/16 04:15 White Blood Count 15.0x10^3/uL (4.0-11.0) 8.7x10^3/uL (4.0-11.0) Red Blood Count 5.38x10^6/uL (4.30-5.70) 4.38x10^6/uL (4.30-5.70) Hemoglobin 15.9g/dL (13.0-17.5) 13.2g/dL (13.0-17.5) Hematocrit 47.8% (39.0-53.0) 39.6% (39.0-53.0) Mean Corpuscular Volume 89fL (79-100) 90fL (79-100) Mean Corpuscular Hemoglobin 30pg (25-35) 30pg (25-35) Mean Corpuscular Hemoglobin Concent 33g/dL (31-37) 33g/dL (31-37) Red Cell Distribution Width 13.3% (11.5-14.5) 13.4% (11.5-14.5) Platelet Count 162x10^3/uL (140-400) 116x10^3/uL (140-400) Neutrophils (%) (Auto) 74% (31-73) 71% (31-73) Lymphocytes (%) (Auto) 12% (24-48) 16% (24-48) Monocytes (%) (Auto) 14% (0-9) 12% (0-9) Eosinophils (%) (Auto) 0% (0-3) 1% (0-3) Basophils (%) (Auto) 0% (0-3) 0% (0-3) Neutrophils # (Auto) 11.1x10^3uL (1.8-7.7) 6.2x10^3uL (1.8-7.7) Lymphocytes # (Auto) 1.8x10^3/uL (1.0-4.8) 1.4x10^3/uL (1.0-4.8) Monocytes # (Auto) 2.1x10^3/uL (0.0-1.1) 1.0x10^3/uL (0.0-1.1) Eosinophils # (Auto) 0.0x10^3/uL (0.0-0.7) 0.1x10^3/uL (0.0-0.7) Basophils # (Auto) 0.0x10^3/uL (0.0-0.2) 0.0x10^3/uL (0.0-0.2) Prothrombin Time 13.6SEC (11.7-14.0) Prothromb Time International Ratio 1.1 (0.8-1.1) Activated Partial Thromboplast Time 35SEC (24-38) Stool Occult Blood Negative (NEG) Sodium Level 138mmol/L (136-145) 140mmol/L (136-145) Potassium Level 4.1mmol/L (3.5-5.1) 3.7mmol/L (3.5-5.1) Chloride Level 101mmol/L (98-107) 107mmol/L (98-107) Carbon Dioxide Level 26mmol/L (21-32) 25mmol/L (21-32) Anion Gap 11 (6-14) 8 (6-14) Blood Urea Nitrogen 15mg/dL (8-26) 14mg/dL (8-26) Creatinine 1.1mg/dL (0.7-1.3) 0.9mg/dL (0.7-1.3) Estimated GFR (Cockcroft-Gault) 64.2 81.0 BUN/Creatinine Ratio 14 (6-20) Glucose Level 188mg/dL (70-99) 101mg/dL (70-99) Calcium Level 8.7mg/dL (8.5-10.1) 7.8mg/dL (8.5-10.1) Total Bilirubin 1.6mg/dL (0.2-1.0) Aspartate Amino Transf (AST/SGOT) 35U/L (15-37) Alanine Aminotransferase (ALT/SGPT) 46U/L (16-63) Alkaline Phosphatase 101U/L (46-116) Troponin I Quantitative < 0.017ng/mL (0.000-0.055) Total Protein 6.6g/dL (6.4-8.2) Albumin 2.7g/dL (3.4-5.0) Albumin/Globulin Ratio 0.7 (1.0-1.7) Lactic Acid Level 1.4mmol/L (0.4-2.0) Urine Collection Type Unknown Urine Color Cecille Urine Clarity Clear Urine pH 6.5 Urine Specific [place] 1.025 Urine Protein Negativemg/dL (NEG-TRACE) Urine Glucose (UA) Negativemg/dL (NEG) Urine Ketones (Stick) Negativemg/dL (NEG) Urine Blood Negative (NEG) Urine Nitrite Negative (NEG) Urine Bilirubin Negative (NEG) Urine Urobilinogen Dipstick 1.0mg/dL (0.2 mg/dL) Urine Leukocyte Esterase Negative (NEG) Urine RBC 11-20/HPF (0-2) Urine WBC 0/HPF (0-4) Urine Bacteria 0/HPF (0-FEW) Urine Mucus Mod/LPF Laboratory Tests Test 07/20/16 10:14 07/20/16 12:10 07/20/16 12:20 07/21/16 04:15 White Blood Count 15.0x10^3/uL (4.0-11.0) 8.7x10^3/uL (4.0-11.0) Red Blood Count 5.38x10^6/uL (4.30-5.70) 4.38x10^6/uL (4.30-5.70) Hemoglobin 15.9g/dL (13.0-17.5) 13.2g/dL (13.0-17.5) Hematocrit 47.8% (39.0-53.0) 39.6% (39.0-53.0) Mean Corpuscular Volume 89fL (79-100) 90fL (79-100) Mean Corpuscular Hemoglobin 30pg (25-35) 30pg (25-35) Mean Corpuscular Hemoglobin Concent 33g/dL (31-37) 33g/dL (31-37) Red Cell Distribution Width 13.3% (11.5-14.5) 13.4% (11.5-14.5) Platelet Count 162x10^3/uL (140-400) 116x10^3/uL (140-400) Neutrophils (%) (Auto) 74% (31-73) 71% (31-73) Lymphocytes (%) (Auto) 12% (24-48) 16% (24-48) Monocytes (%) (Auto) 14% (0-9) 12% (0-9) Eosinophils (%) (Auto) 0% (0-3) 1% (0-3) Basophils (%) (Auto) 0% (0-3) 0% (0-3) Neutrophils # (Auto) 11.1x10^3uL (1.8-7.7) 6.2x10^3uL (1.8-7.7) Lymphocytes # (Auto) 1.8x10^3/uL (1.0-4.8) 1.4x10^3/uL (1.0-4.8) Monocytes # (Auto) 2.1x10^3/uL (0.0-1.1) 1.0x10^3/uL (0.0-1.1) Eosinophils # (Auto) 0.0x10^3/uL (0.0-0.7) 0.1x10^3/uL (0.0-0.7) Basophils # (Auto) 0.0x10^3/uL (0.0-0.2) 0.0x10^3/uL (0.0-0.2) Prothrombin Time 13.6SEC (11.7-14.0) Prothromb Time International Ratio 1.1 (0.8-1.1) Activated Partial Thromboplast Time 35SEC (24-38) Stool Occult Blood Negative (NEG) Sodium Level 138mmol/L (136-145) 140mmol/L (136-145) Potassium Level 4.1mmol/L (3.5-5.1) 3.7mmol/L (3.5-5.1) Chloride Level 101mmol/L (98-107) 107mmol/L (98-107) Carbon Dioxide Level 26mmol/L (21-32) 25mmol/L (21-32) Anion Gap 11 (6-14) 8 (6-14) Blood Urea Nitrogen 15mg/dL (8-26) 14mg/dL (8-26) Creatinine 1.1mg/dL (0.7-1.3) 0.9mg/dL (0.7-1.3) Estimated GFR (Cockcroft-Gault) 64.2 81.0 BUN/Creatinine Ratio 14 (6-20) Glucose Level 188mg/dL (70-99) 101mg/dL (70-99) Calcium Level 8.7mg/dL (8.5-10.1) 7.8mg/dL (8.5-10.1) Total Bilirubin 1.6mg/dL (0.2-1.0) Aspartate Amino Transf (AST/SGOT) 35U/L (15-37) Alanine Aminotransferase (ALT/SGPT) 46U/L (16-63) Alkaline Phosphatase 101U/L (46-116) Troponin I Quantitative < 0.017ng/mL (0.000-0.055) Total Protein 6.6g/dL (6.4-8.2) Albumin 2.7g/dL (3.4-5.0) Albumin/Globulin Ratio 0.7 (1.0-1.7) Lactic Acid Level 1.4mmol/L (0.4-2.0) Urine Collection Type Unknown Urine Color Cecille Urine Clarity Clear Urine pH 6.5 Urine Specific [place] 1.025 Urine Protein Negativemg/dL (NEG-TRACE) Urine Glucose (UA) Negativemg/dL (NEG) Urine Ketones (Stick) Negativemg/dL (NEG) Urine Blood Negative (NEG) Urine Nitrite Negative (NEG) Urine Bilirubin Negative (NEG) Urine Urobilinogen Dipstick 1.0mg/dL (0.2 mg/dL) Urine Leukocyte Esterase Negative (NEG) Urine RBC 11-20/HPF (0-2) Urine WBC 0/HPF (0-4) Urine Bacteria 0/HPF (0-FEW) Urine Mucus Mod/LPF Medications Current Medications Sodium Chloride (Iv Sodium Chloride 0.9% 1000ml Bag) 1,000 ml @ 1,000 mls/hr 1X ONCE IV Last administered on 07/20/16 11:18; Start 07/20/16 at 10:30; Stop 07/20/16 at 11:29; Status DC Ondansetron HCl (Zofran) 4 mg 1X ONCE IV Last administered on 07/20/16 11:18 ; Start 07/20/16 at 10:30; Stop 07/20/16 at 10:42; Status DC Fentanyl Citrate (Fentanyl 2ml Vial) 50 mcg PRN Q15MIN PRN IV PAIN GREATER THAN 3/10 Last administered on 07/20/16 14:31; Start 07/20/16 at 10:30; Stop at 10:29 Iohexol (Omnipaque 300 Mg/ml) 75 ml 1X ONCE IV Last administered on 07/20/16 12:25; Start 07/20/16 at 11:30; Stop 07/20/16 at 11:31; Status DC Info 1 each 1 each PRN DAILY PRN MC SEE COMMENTS; Start 07/20/16 at 11:30; Stop 07/22/16 at 11:29 Ciprofloxacin Lactate 200 ml @ 200 mls/hr Q12HR IV Last administered on 22:07; Start 07/20/16 at 22:00 Metronidazole 100 ml @ 100 mls/hr 1X ONCE IV Last administered on 07/20/16 14:36; Start 07/20/16 at 13:30; Stop 07/20/16 at 14:29; Status DC Ciprofloxacin Lactate (Cipro 400mg Premix) 200 ml @ 200 mls/hr ONCE ONCE IV Last administered on 07/20/16 17:31; Start 07/20/16 at 13:33; Stop 07/20/16 at 14:32; Status DC Ondansetron HCl (Zofran) 4 mg PRN Q8HRS PRN IV NAUSEA/VOMITING Last administered on 07/20/16 20:34; Start 07/20/16 at 13:45; Stop 07/21/16 at 13:44 Morphine Sulfate 4 mg 4 mg PRN Q2HR PRN IV PAIN Last administered on 07/21/16 06:23; Start 07/20/16 at 13:45; Stop 07/21/16 at 13:44 Sodium Chloride 1,000 ml @ 100 mls/hr Q10H IV Last administered on 07/21/16 02:45; Start 07/20/16 at 13:31; Stop 07/21/16 at 13:30 Metronidazole (FLAGYL 500Mmg PREMIX) 100 ml @ 100 mls/hr Q8HRS IV Last administered on 07/21/16 06:22; Start 07/20/16 at 16:00 Finasteride (Proscar) 5 mg DAILY PO ; Start 07/22/16 at 09:00; Status UNV Tamsulosin HCl (Flomax) 0.4 mg DAILY PO ; Start 07/22/16 at 09:00; Status UNV Vitals/I & O Vital Sign - Last 24 Hours 07/20/16 07/20/16 07/20/16 07/20/16 09:36 11:30 12:00 13:00 Temp 97.8 97.8 Pulse 113 94 96 94 Resp 20 4 11 13 B/P 154/69 131/63 148/70 Pulse Ox 93 94 94 96 O2 Delivery Room Air Room Air Room Air Nasal Cannula O2 Flow Rate 2 07/20/16 07/20/16 07/20/16 07/20/16 14:00 15:00 16:00 16:00 Temp 99.2 99.2 99.2 99.2 Pulse 86 80 151 79 Resp 19 12 18 18 B/P 151/61 151/61 Pulse Ox 96 94 96 96 O2 Delivery Nasal Cannula Nasal Cannula Room Air Room Air O2 Flow Rate 2 2 07/20/16 07/20/16 07/20/16 07/20/16 16:30 17:26 18:16 19:00 Temp 100.4 100.4 Pulse 78 Resp 18 B/P 117/59 Pulse Ox 96 96 O2 Delivery Nasal Cannula Room Air Room Air O2 Flow Rate 2.0 07/20/16 07/20/16 07/21/16 07/21/16 20:27 23:00 03:00 07:00 Temp 98.6 97.9 98.1 98.6 97.9 98.1 Pulse 80 74 65 Resp 18 18 20 B/P 117/60 128/59 119/54 Pulse Ox 91 92 94 O2 Delivery Room Air Room Air Room Air Room Air Intake and Output 07/20/16 07/20/16 07/21/16 15:00 23:00 07:00 Intake Total 1 ml Output Total 500 ml 500 ml Balance -499 ml -500 ml EDWAR WALSH MD Jul 21, 2016 09:27
--- NOTE | 2016-07-21 09:37 | PDOC ---
SUBJECTIVE Subjective Pt resting comfortably, no complaints at this time. he usually takes flomax 0.4 m tablet daily and proscar 5 m tablet daily at home for BPH. He is wanting to know more about what was found on imaging. OBJECTIVE Objective GEN: NAD HEENT: OP clear CV: S1S2 without murmurs, rubs, or gallops RESP: CTAB without wheezing, rhonchi, or crackles BACK: No CVA tenderness ABD: NABS, Soft, mild-moderate tenderness over the left lower and left upper quadrants NEURO: AAO x 3 Vital Signs Vital Signs Date Time Temp Pulse Resp B/P Pulse Ox O2 Delivery O2 Flow Rate FiO2 07/21/16 07:00 98.1 65 20 119/54 94 Room Air 98.1 07/21/16 03:00 97.9 74 18 128/59 92 Room Air 97.9 07/20/16 23:00 98.6 80 18 117/60 91 Room Air 98.6 07/20/16 20:27 Room Air 07/20/16 19:00 100.4 78 18 117/59 96 Room Air 100.4 07/20/16 18:16 96 07/20/16 17:26 Room Air 07/20/16 16:30 Nasal Cannula 2.0 07/20/16 16:00 99.2 79 18 151/61 96 Room Air 99.2 07/20/16 16:00 99.2 151 18 151/61 96 Room Air 99.2 07/20/16 15:00 80 12 94 Nasal Cannula 2 07/20/16 14:00 86 19 96 Nasal Cannula 2 07/20/16 13:00 94 13 96 Nasal Cannula 2 07/20/16 12:00 96 11 148/70 94 Room Air 07/20/16 11:30 94 4 131/63 94 Room Air 07/20/16 09:36 97.8 113 20 154/69 93 Room Air 97.8 I & O Intake and Output 07/21/16 07:00 Intake Total 1 ml Output Total 1000 ml Balance -999 ml Intake Oral 1 ml Output Urine Total 500 ml Emesis 500 ml # Voids 1 PHYSICAL EXAM Physical Exam PHYSICAL EXAMINATION: GENERAL: Gen. appearance: No acute distress. Mood/affect: Pleasant. HEENT: Head: Normocephalic, atraumatic. Airway Impairment: No. CHEST: Shape and expansion: Normal. Expansion: Normal. ABDOMEN: General: Soft, mild-moderate tenderness over the left lower and left upper quadrants BACK: No CVA tenderness SKIN: General: Warm. Color: Good] NEUROLOGICAL: Mental status: Alert and oriented 3. Language: Normal. PSYCHOLOGY: Affect: Normal. Mood: Pleasant. 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 Contact [facility] Lopez at [phone]. Dr. Otero is out of town 07/21-07/23 Problems: (1) Renal mass (2) BPH (benign prostatic hyperplasia) COMMENT Lab Laboratory Tests Test 07/20/16 10:14 07/20/16 12:10 07/20/16 12:20 07/21/16 04:15 White Blood Count 15.0x10^3/uL (4.0-11.0) 8.7x10^3/uL (4.0-11.0) Red Blood Count 5.38x10^6/uL (4.30-5.70) 4.38x10^6/uL (4.30-5.70) Hemoglobin 15.9g/dL (13.0-17.5) 13.2g/dL (13.0-17.5) Hematocrit 47.8% (39.0-53.0) 39.6% (39.0-53.0) Mean Corpuscular Volume 89fL (79-100) 90fL (79-100) Mean Corpuscular Hemoglobin 30pg (25-35) 30pg (25-35) Mean Corpuscular Hemoglobin Concent 33g/dL (31-37) 33g/dL (31-37) Red Cell Distribution Width 13.3% (11.5-14.5) 13.4% (11.5-14.5) Platelet Count 162x10^3/uL (140-400) 116x10^3/uL (140-400) Neutrophils (%) (Auto) 74% (31-73) 71% (31-73) Lymphocytes (%) (Auto) 12% (24-48) 16% (24-48) Monocytes (%) (Auto) 14% (0-9) 12% (0-9) Eosinophils (%) (Auto) 0% (0-3) 1% (0-3) Basophils (%) (Auto) 0% (0-3) 0% (0-3) Neutrophils # (Auto) 11.1x10^3uL (1.8-7.7) 6.2x10^3uL (1.8-7.7) Lymphocytes # (Auto) 1.8x10^3/uL (1.0-4.8) 1.4x10^3/uL (1.0-4.8) Monocytes # (Auto) 2.1x10^3/uL (0.0-1.1) 1.0x10^3/uL (0.0-1.1) Eosinophils # (Auto) 0.0x10^3/uL (0.0-0.7) 0.1x10^3/uL (0.0-0.7) Basophils # (Auto) 0.0x10^3/uL (0.0-0.2) 0.0x10^3/uL (0.0-0.2) Prothrombin Time 13.6SEC (11.7-14.0) Prothromb Time International Ratio 1.1 (0.8-1.1) Activated Partial Thromboplast Time 35SEC (24-38) Stool Occult Blood Negative (NEG) Sodium Level 138mmol/L (136-145) 140mmol/L (136-145) Potassium Level 4.1mmol/L (3.5-5.1) 3.7mmol/L (3.5-5.1) Chloride Level 101mmol/L (98-107) 107mmol/L (98-107) Carbon Dioxide Level 26mmol/L (21-32) 25mmol/L (21-32) Anion Gap 11 (6-14) 8 (6-14) Blood Urea Nitrogen 15mg/dL (8-26) 14mg/dL (8-26) Creatinine 1.1mg/dL (0.7-1.3) 0.9mg/dL (0.7-1.3) Estimated GFR (Cockcroft-Gault) 64.2 81.0 BUN/Creatinine Ratio 14 (6-20) Glucose Level 188mg/dL (70-99) 101mg/dL (70-99) Calcium Level 8.7mg/dL (8.5-10.1) 7.8mg/dL (8.5-10.1) Total Bilirubin 1.6mg/dL (0.2-1.0) Aspartate Amino Transf (AST/SGOT) 35U/L (15-37) Alanine Aminotransferase (ALT/SGPT) 46U/L (16-63) Alkaline Phosphatase 101U/L (46-116) Troponin I Quantitative < 0.017ng/mL (0.000-0.055) Total Protein 6.6g/dL (6.4-8.2) Albumin 2.7g/dL (3.4-5.0) Albumin/Globulin Ratio 0.7 (1.0-1.7) Lactic Acid Level 1.4mmol/L (0.4-2.0) Urine Collection Type Unknown Urine Color Cecille Urine Clarity Clear Urine pH 6.5 Urine Specific [place] 1.025 Urine Protein Negativemg/dL (NEG-TRACE) Urine Glucose (UA) Negativemg/dL (NEG) Urine Ketones (Stick) Negativemg/dL (NEG) Urine Blood Negative (NEG) Urine Nitrite Negative (NEG) Urine Bilirubin Negative (NEG) Urine Urobilinogen Dipstick 1.0mg/dL (0.2 mg/dL) Urine Leukocyte Esterase Negative (NEG) Urine RBC 11-20/HPF (0-2) Urine WBC 0/HPF (0-4) Urine Bacteria 0/HPF (0-FEW) Urine Mucus Mod/LPF Imaging ABD/PELVIS CT 07/20/16: small left renal mass: complicated cyst vs solid mass CHEPE MUÑIZ APRN Jul 21, 2016 09:37
--- NOTE | 2016-07-21 10:14 | PDOC ---
Infectious Disease Note Vital Sign Vital Signs Vital Signs Date Time Temp Pulse Resp B/P Pulse Ox O2 Delivery O2 Flow Rate FiO2 07/21/16 07:00 98.1 65 20 119/54 94 Room Air 98.1 07/20/16 16:30 2.0 Labs Lab Laboratory Tests Test 07/20/16 10:14 07/20/16 12:10 07/20/16 12:20 07/21/16 04:15 White Blood Count 15.0x10^3/uL (4.0-11.0) 8.7x10^3/uL (4.0-11.0) Red Blood Count 5.38x10^6/uL (4.30-5.70) 4.38x10^6/uL (4.30-5.70) Hemoglobin 15.9g/dL (13.0-17.5) 13.2g/dL (13.0-17.5) Hematocrit 47.8% (39.0-53.0) 39.6% (39.0-53.0) Mean Corpuscular Volume 89fL (79-100) 90fL (79-100) Mean Corpuscular Hemoglobin 30pg (25-35) 30pg (25-35) Mean Corpuscular Hemoglobin Concent 33g/dL (31-37) 33g/dL (31-37) Red Cell Distribution Width 13.3% (11.5-14.5) 13.4% (11.5-14.5) Platelet Count 162x10^3/uL (140-400) 116x10^3/uL (140-400) Neutrophils (%) (Auto) 74% (31-73) 71% (31-73) Lymphocytes (%) (Auto) 12% (24-48) 16% (24-48) Monocytes (%) (Auto) 14% (0-9) 12% (0-9) Eosinophils (%) (Auto) 0% (0-3) 1% (0-3) Basophils (%) (Auto) 0% (0-3) 0% (0-3) Neutrophils # (Auto) 11.1x10^3uL (1.8-7.7) 6.2x10^3uL (1.8-7.7) Lymphocytes # (Auto) 1.8x10^3/uL (1.0-4.8) 1.4x10^3/uL (1.0-4.8) Monocytes # (Auto) 2.1x10^3/uL (0.0-1.1) 1.0x10^3/uL (0.0-1.1) Eosinophils # (Auto) 0.0x10^3/uL (0.0-0.7) 0.1x10^3/uL (0.0-0.7) Basophils # (Auto) 0.0x10^3/uL (0.0-0.2) 0.0x10^3/uL (0.0-0.2) Prothrombin Time 13.6SEC (11.7-14.0) Prothromb Time International Ratio 1.1 (0.8-1.1) Activated Partial Thromboplast Time 35SEC (24-38) Stool Occult Blood Negative (NEG) Sodium Level 138mmol/L (136-145) 140mmol/L (136-145) Potassium Level 4.1mmol/L (3.5-5.1) 3.7mmol/L (3.5-5.1) Chloride Level 101mmol/L (98-107) 107mmol/L (98-107) Carbon Dioxide Level 26mmol/L (21-32) 25mmol/L (21-32) Anion Gap 11 (6-14) 8 (6-14) Blood Urea Nitrogen 15mg/dL (8-26) 14mg/dL (8-26) Creatinine 1.1mg/dL (0.7-1.3) 0.9mg/dL (0.7-1.3) Estimated GFR (Cockcroft-Gault) 64.2 81.0 BUN/Creatinine Ratio 14 (6-20) Glucose Level 188mg/dL (70-99) 101mg/dL (70-99) Calcium Level 8.7mg/dL (8.5-10.1) 7.8mg/dL (8.5-10.1) Total Bilirubin 1.6mg/dL (0.2-1.0) Aspartate Amino Transf (AST/SGOT) 35U/L (15-37) Alanine Aminotransferase (ALT/SGPT) 46U/L (16-63) Alkaline Phosphatase 101U/L (46-116) Troponin I Quantitative < 0.017ng/mL (0.000-0.055) Total Protein 6.6g/dL (6.4-8.2) Albumin 2.7g/dL (3.4-5.0) Albumin/Globulin Ratio 0.7 (1.0-1.7) Lactic Acid Level 1.4mmol/L (0.4-2.0) Urine Collection Type Unknown Urine Color Cecille Urine Clarity Clear Urine pH 6.5 Urine Specific [place] 1.025 Urine Protein Negativemg/dL (NEG-TRACE) Urine Glucose (UA) Negativemg/dL (NEG) Urine Ketones (Stick) Negativemg/dL (NEG) Urine Blood Negative (NEG) Urine Nitrite Negative (NEG) Urine Bilirubin Negative (NEG) Urine Urobilinogen Dipstick 1.0mg/dL (0.2 mg/dL) Urine Leukocyte Esterase Negative (NEG) Urine RBC 11-20/HPF (0-2) Urine WBC 0/HPF (0-4) Urine Bacteria 0/HPF (0-FEW) Urine Mucus Mod/LPF Objective Assessment Fever Leukocytosis Diverticulitis HTN Plan Plan of Care since pt is responding, cont with cipro and flagyl for now diet to start with clear liquid d/w GI supportive care SARI SILVERIO MD Jul 21, 2016 10:14
--- NOTE | 2016-07-21 10:14 | PDOC ---
Subjective: Subjective: Feeling better w/ less abd pain. Objective: Objective: Per RN - doing okay, some RLQ pain. Vital Signs: Vital Signs Date Time Temp Pulse Resp B/P Pulse Ox O2 Delivery O2 Flow Rate FiO2 07/21/16 07:00 98.1 65 20 119/54 94 Room Air 98.1 07/20/16 16:30 2.0 Labs: Laboratory Tests Test 07/20/16 10:14 07/20/16 12:10 07/20/16 12:20 07/21/16 04:15 White Blood Count 15.0x10^3/uL 8.7x10^3/uL Red Blood Count 5.38x10^6/uL 4.38x10^6/uL Hemoglobin 15.9g/dL 13.2g/dL Hematocrit 47.8% 39.6% Mean Corpuscular Volume 89fL 90fL Mean Corpuscular Hemoglobin 30pg 30pg Mean Corpuscular Hemoglobin Concent 33g/dL 33g/dL Red Cell Distribution Width 13.3% 13.4% Platelet Count 162x10^3/uL 116x10^3/uL Neutrophils (%) (Auto) 74% 71% Lymphocytes (%) (Auto) 12% 16% Monocytes (%) (Auto) 14% 12% Eosinophils (%) (Auto) 0% 1% Basophils (%) (Auto) 0% 0% Neutrophils # (Auto) 11.1x10^3uL 6.2x10^3uL Lymphocytes # (Auto) 1.8x10^3/uL 1.4x10^3/uL Monocytes # (Auto) 2.1x10^3/uL 1.0x10^3/uL Eosinophils # (Auto) 0.0x10^3/uL 0.1x10^3/uL Basophils # (Auto) 0.0x10^3/uL 0.0x10^3/uL Prothrombin Time 13.6SEC Prothromb Time International Ratio 1.1 Activated Partial Thromboplast Time 35SEC Stool Occult Blood Negative Sodium Level 138mmol/L 140mmol/L Potassium Level 4.1mmol/L 3.7mmol/L Chloride Level 101mmol/L 107mmol/L Carbon Dioxide Level 26mmol/L 25mmol/L Anion Gap 11 8 Blood Urea Nitrogen 15mg/dL 14mg/dL Creatinine 1.1mg/dL 0.9mg/dL Estimated GFR (Cockcroft-Gault) 64.2 81.0 BUN/Creatinine Ratio 14 Glucose Level 188mg/dL 101mg/dL Calcium Level 8.7mg/dL 7.8mg/dL Total Bilirubin 1.6mg/dL Aspartate Amino Transf (AST/SGOT) 35U/L Alanine Aminotransferase (ALT/SGPT) 46U/L Alkaline Phosphatase 101U/L Troponin I Quantitative < 0.017ng/mL Total Protein 6.6g/dL Albumin 2.7g/dL Albumin/Globulin Ratio 0.7 Lactic Acid Level 1.4mmol/L Urine Collection Type Unknown Urine Color Cecille Urine Clarity Clear Urine pH 6.5 Urine Specific [place] 1.025 Urine Protein Negativemg/dL Urine Glucose (UA) Negativemg/dL Urine Ketones (Stick) Negativemg/dL Urine Blood Negative Urine Nitrite Negative Urine Bilirubin Negative Urine Urobilinogen Dipstick 1.0mg/dL Urine Leukocyte Esterase Negative Urine RBC 11-20/HPF Urine WBC 0/HPF Urine Bacteria 0/HPF Urine Mucus Mod/LPF PE: GEN: NAD LUNGS: CTAB anteriorly HEART: RRR ABD: BS quiet, S/ND, some RLQ/suprapubic/right groin tenderness - LESS NEURO/PSYCH: A & O 3 A/P: Sigmoid diverticulitis -less pain today -last colonoscopy w/ diverticulosis in 2005 (per our records) 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 Try clear liquids. D/w Dr. Starla Mireles. VINOD FOSTER Jul 21, 2016 10:13
[2016-07-21] MEDS: CIPROFLOXACIN 400MG PREMIX 200 ML IV SCH ×2 (10:48→21:29)
[2016-07-21] MEDS: TAMSULOSIN 0.4 MG CAP.ER.24H. PO SCH (10:48)
[2016-07-21] MEDS: FINASTERIDE 5 MG TABLET. PO SCH (10:48)
[2016-07-21 11:00] VITALS: BP 124/68
[2016-07-21 15:00] VITALS: BP 124/64
[2016-07-21 19:00] VITALS: BP 133/77
[2016-07-21] MEDS ORDERED: ONDANSETRON PF 4 MG/2 ML VIAL. IV PRN (19:00)
[2016-07-21] MEDS ORDERED: MORPHINE SULFATE 2 MG/ML DISP.SYRIN. IV PRN (19:00)
[2016-07-21 23:00] VITALS: BP 112/52
--- NOTE | 2016-07-21 23:43 | CONS ---
DATE OF CONSULTATION: 07/21/2016 REQUESTING PHYSICIAN: Dr. Guerra. REASON FOR CONSULTATION: Diverticulitis. HISTORY OF PRESENT ILLNESS: This is an 80-year-old gentleman with a history of hypertension who came in with abdominal pain. The patient had a CAT scan showing diverticulitis. The patient was started on n.p.o. Cipro and Flagyl. The patient did have fever, leukocytosis, today the patient is feeling much better. Denies any nausea, vomiting, denies any diarrhea. He has not had any bowel movement. Denies any chest pain, abdominal pain is more than 50% better. PAST MEDICAL HISTORY: Positive for hypertension, gastroesophageal reflux disease, history of cholecystectomy, appendicectomy and previous colon resection done. SOCIAL HISTORY: Negative for smoking, alcohol, illicit drug use. 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 ALLERGIES: No known drug allergies. CURRENT MEDICATIONS: Reviewed. REVIEW OF SYSTEMS: As per HPI, all other systems reviewed are negative. PHYSICAL EXAMINATION: GENERAL: Alert, oriented gentleman, not in distress. VITAL SIGNS: Stable with a T-max of 100.4. HEENT: Anicteric. NECK: Supple, no JVP, no lymphadenopathy. LUNGS: Clear. HEART: S1, S2 regular. ABDOMEN: Soft, mild right lower quadrant tenderness. No rebound or guarding. No organomegaly. EXTREMITIES: No edema, cyanosis. SKIN: Unremarkable. NEUROLOGIC: The patient is neurologically intact. LABORATORY DATA: White count is down from 15,000 to normal. BUN and creatinine is normal. CT scan of the abdomen and pelvis reviewed. IMPRESSION: 1. Diverticulitis. 2. Fever and leukocytosis. 3. Hypertension. PLAN: Since the patient is responding, I would continue with the same with Cipro, Flagyl advance diet to clear liquid, supportive care and we will continue to follow. Thank you very much, Dr. Guerra for giving me the opportunity to participate in this patient's care. SARI SILVERIO MD DR: TERRI/jarred JOB#: [id number] / [id number]
[2016-07-22 03:00] VITALS: BP 104/56
[2016-07-22 04:49] LABS: BASO % 0 % (0-3); EOS % 3 % (0-3); HEMATOCRIT 41.1 % (39.0-53.0); HEMOGLOBIN 13.5 g/dL (13.0-17.5); LYMPH # 1.6 x10^3/uL (1.0-4.8); LYMPH % 29 % (24-48); MEAN CORPUSCULAR HEMOGLOBIN 30 pg (25-35); MEAN CORPUSCULAR HGB CONC 33 g/dL (31-37); MEAN CORPUSCULAR VOLUME 90 fL (79-100); MONO % 13 % (0-9); NEUT % 55 % (31-73); PLATELET COUNT 127 x10^3/uL (140-400); RED BLOOD COUNT 4.56 x10^6/uL (4.30-5.70); RED CELL DISTRIBUTION WIDTH 13.3 % (11.5-14.5); WHITE BLOOD COUNT 5.4 x10^3/uL (4.0-11.0)
[2016-07-22 05:01] LABS: CALCIUM 8.3 mg/dL (8.5-10.1); GFR 71.7; POTASSIUM 4.5 mmol/L (3.5-5.1)
[2016-07-22] MEDS ORDERED: MAGN71.5 PO (05:33)
[2016-07-22] MEDS ORDERED: SOTA80TA PO (05:33)
[2016-07-22] MEDS ORDERED: TAMS0.4C97 PO (05:33)
[2016-07-22] MEDS ORDERED: ASPI-482 PO (05:33)
[2016-07-22] MEDS ORDERED: DESV25TA PO (05:33)
[2016-07-22] MEDS ORDERED: OMEP20TA PO (05:33)
[2016-07-22] MEDS ORDERED: FINA5TAB4 PO (05:33)
[2016-07-22] MEDS ORDERED: [UNRECOGNIZED DRUG - CODE] PO (05:33)
[2016-07-22] MEDS ORDERED: OMEG1CAP38 PO (05:33)
[2016-07-22] MEDS: METRONIDAZOLE 500mg PREMIX 100 ML IV SCH ×3 (05:34→22:35)
[2016-07-22 07:00] VITALS: BP 128/59
[2016-07-22] MEDS: CIPROFLOXACIN 400MG PREMIX 200 ML IV SCH ×2 (09:34→21:19)
[2016-07-22] MEDS: TAMSULOSIN 0.4 MG CAP.ER.24H. PO SCH (09:35)
[2016-07-22] MEDS: FINASTERIDE 5 MG TABLET. PO SCH (09:35)
[2016-07-22 11:00] VITALS: BP 118/58
--- NOTE | 2016-07-22 12:38 | PDOC ---
G I PROGRESS NOTE Subjective No real complaints. Pain continues to improve. Physical Exam Lungs clear. RRR Abdomen soft, not distended. Minimally tender LLQ. Review of Relevant I have reviewed the following items orion (where applicable) has been applied. Labs Laboratory Tests Test 07/21/16 04:15 07/22/16 03:50 White Blood Count 8.7x10^3/uL (4.0-11.0) 5.4x10^3/uL (4.0-11.0) Red Blood Count 4.38x10^6/uL (4.30-5.70) 4.56x10^6/uL (4.30-5.70) Hemoglobin 13.2g/dL (13.0-17.5) 13.5g/dL (13.0-17.5) Hematocrit 39.6% (39.0-53.0) 41.1% (39.0-53.0) Mean Corpuscular Volume 90fL (79-100) 90fL (79-100) Mean Corpuscular Hemoglobin 30pg (25-35) 30pg (25-35) Mean Corpuscular Hemoglobin Concent 33g/dL (31-37) 33g/dL (31-37) Red Cell Distribution Width 13.4% (11.5-14.5) 13.3% (11.5-14.5) Platelet Count 116x10^3/uL (140-400) 127x10^3/uL (140-400) Neutrophils (%) (Auto) 71% (31-73) 55% (31-73) Lymphocytes (%) (Auto) 16% (24-48) 29% (24-48) Monocytes (%) (Auto) 12% (0-9) 13% (0-9) Eosinophils (%) (Auto) 1% (0-3) 3% (0-3) Basophils (%) (Auto) 0% (0-3) 0% (0-3) Neutrophils # (Auto) 6.2x10^3uL (1.8-7.7) 2.9x10^3uL (1.8-7.7) Lymphocytes # (Auto) 1.4x10^3/uL (1.0-4.8) 1.6x10^3/uL (1.0-4.8) Monocytes # (Auto) 1.0x10^3/uL (0.0-1.1) 0.7x10^3/uL (0.0-1.1) Eosinophils # (Auto) 0.1x10^3/uL (0.0-0.7) 0.2x10^3/uL (0.0-0.7) Basophils # (Auto) 0.0x10^3/uL (0.0-0.2) 0.0x10^3/uL (0.0-0.2) Sodium Level 140mmol/L (136-145) 140mmol/L (136-145) Potassium Level 3.7mmol/L (3.5-5.1) 4.5mmol/L (3.5-5.1) Chloride Level 107mmol/L (98-107) 107mmol/L (98-107) Carbon Dioxide Level 25mmol/L (21-32) 28mmol/L (21-32) Anion Gap 8 (6-14) 5 (6-14) Blood Urea Nitrogen 14mg/dL (8-26) 10mg/dL (8-26) Creatinine 0.9mg/dL (0.7-1.3) 1.0mg/dL (0.7-1.3) Estimated GFR (Cockcroft-Gault) 81.0 71.7 Glucose Level 101mg/dL (70-99) 102mg/dL (70-99) Calcium Level 7.8mg/dL (8.5-10.1) 8.3mg/dL (8.5-10.1) Laboratory Tests Test 07/22/16 03:50 White Blood Count 5.4x10^3/uL (4.0-11.0) Red Blood Count 4.56x10^6/uL (4.30-5.70) Hemoglobin 13.5g/dL (13.0-17.5) Hematocrit 41.1% (39.0-53.0) Mean Corpuscular Volume 90fL (79-100) Mean Corpuscular Hemoglobin 30pg (25-35) Mean Corpuscular Hemoglobin Concent 33g/dL (31-37) Red Cell Distribution Width 13.3% (11.5-14.5) Platelet Count 127x10^3/uL (140-400) Neutrophils (%) (Auto) 55% (31-73) Lymphocytes (%) (Auto) 29% (24-48) Monocytes (%) (Auto) 13% (0-9) Eosinophils (%) (Auto) 3% (0-3) Basophils (%) (Auto) 0% (0-3) Neutrophils # (Auto) 2.9x10^3uL (1.8-7.7) Lymphocytes # (Auto) 1.6x10^3/uL (1.0-4.8) Monocytes # (Auto) 0.7x10^3/uL (0.0-1.1) Eosinophils # (Auto) 0.2x10^3/uL (0.0-0.7) Basophils # (Auto) 0.0x10^3/uL (0.0-0.2) Sodium Level 140mmol/L (136-145) Potassium Level 4.5mmol/L (3.5-5.1) Chloride Level 107mmol/L (98-107) Carbon Dioxide Level 28mmol/L (21-32) Anion Gap 5 (6-14) Blood Urea Nitrogen 10mg/dL (8-26) Creatinine 1.0mg/dL (0.7-1.3) Estimated GFR (Cockcroft-Gault) 71.7 Glucose Level 102mg/dL (70-99) Calcium Level 8.3mg/dL (8.5-10.1) Medications Current Medications Sodium Chloride (Iv Sodium Chloride 0.9% 1000ml Bag) 1,000 ml @ 1,000 mls/hr 1X ONCE IV Last administered on 07/20/16 11:18; Start 07/20/16 at 10:30; Stop 07/20/16 at 11:29; Status DC Ondansetron HCl (Zofran) 4 mg 1X ONCE IV Last administered on 07/20/16 11:18 ; Start 07/20/16 at 10:30; Stop 07/20/16 at 10:42; Status DC Fentanyl Citrate (Fentanyl 2ml Vial) 50 mcg PRN Q15MIN PRN IV PAIN GREATER THAN 3/10 Last administered on 07/20/16 14:31; Start 07/20/16 at 10:30; Stop at 10:29; Status DC Iohexol (Omnipaque 300 Mg/ml) 75 ml 1X ONCE IV Last administered on 07/20/16 12:25; Start 07/20/16 at 11:30; Stop 07/20/16 at 11:31; Status DC Info 1 each 1 each PRN DAILY PRN MC SEE COMMENTS; Start 07/20/16 at 11:30; Stop 07/22/16 at 11:29; Status DC Ciprofloxacin Lactate 200 ml @ 200 mls/hr Q12HR IV Last administered on 09:34; Start 07/20/16 at 22:00 Metronidazole 100 ml @ 100 mls/hr 1X ONCE IV Last administered on 07/20/16 14:36; Start 07/20/16 at 13:30; Stop 07/20/16 at 14:29; Status DC Ciprofloxacin Lactate (Cipro 400mg Premix) 200 ml @ 200 mls/hr ONCE ONCE IV Last administered on 07/20/16 17:31; Start 07/20/16 at 13:33; Stop 07/20/16 at 14:32; Status DC Ondansetron HCl (Zofran) 4 mg PRN Q8HRS PRN IV NAUSEA/VOMITING Last administered on 07/20/16 20:34; Start 07/20/16 at 13:45; Stop 07/21/16 at 13:44 ; Status DC Morphine Sulfate 4 mg 4 mg PRN Q2HR PRN IV PAIN Last administered on 07/21/16 06:23; Start 07/20/16 at 13:45; Stop 07/21/16 at 13:44; Status DC Sodium Chloride 1,000 ml @ 100 mls/hr Q10H IV Last administered on 07/21/16 10:52; Start 07/20/16 at 13:31; Stop 07/21/16 at 13:30; Status DC Metronidazole (FLAGYL 500Mmg PREMIX) 100 ml @ 100 mls/hr Q8HRS IV Last administered on 07/22/16 05:34; Start 07/20/16 at 16:00 Finasteride (Proscar) 5 mg DAILY PO Last administered on 07/22/16 09:35; Start 07/21/16 at 10:00 Tamsulosin HCl (Flomax) 0.4 mg DAILY PO Last administered on 07/22/16t 09:35; Start 07/21/16 at 10:00 Morphine Sulfate 4 mg PRN Q2HR PRN IV PAIN; Start 07/21/16 at 19:00 Ondansetron HCl (Zofran) 4 mg PRN Q6HRS PRN IV NAUSEA/VOMITING; Start 07/21/16 at 19:00 Active Scripts Active Reported [facility] Adults 50+ Tablet (Multivits-Min/Fa/Lycopene/Lut) 1 Each Tablet 1 Each PO DAILY [place] 3 Fish Oil Softgel ([place]-3 Fatty Acids/Fish Oil) 1 Each Capsule.dr 2 Each PO BID Finasteride 5 Mg Tablet 1 Tab PO DAILY Sotalol (Sotalol Hcl) 80 Mg Tablet 40 Mg PO BID Aspir 81 (Aspirin) 81 Mg Tablet.dr 1 Tab PO DAILY Pristiq ER (Desvenlafaxine Succinate) 25 Mg Tab.er.24h 150 Mg PO DAILY Slow-Mag (Magnesium Chloride) 71.5 Mg Tablet.dr 71.5 Mg PO BID Flomax (Tamsulosin Hcl) 0.4 Mg Cap.er.24h 0.8 Mg PO HS Omeprazole 20 Mg Tablet.dr 1 Tab PO BID Vitals/I & O Vital Sign - Last 24 Hours 07/21/16 07/21/16 07/21/16 07/22/16 15:00 19:00 23:00 03:00 Temp 98.4 98.7 98.6 98.7 98.4 98.7 98.6 98.7 Pulse 63 72 64 61 Resp 20 20 18 18 B/P 124/64 133/77 112/52 104/56 Pulse Ox 93 97 97 93 O2 Delivery Room Air Room Air Room Air Room Air 07/22/16 07/22/16 07/22/16 07:00 07:45 11:00 Temp 98.0 98.4 98.0 98.4 Pulse 63 59 Resp 16 20 B/P 128/59 118/58 Pulse Ox 93 96 O2 Delivery Room Air Room Air Room Air Intake and Output 07/21/16 07/21/16 07/22/16 15:00 23:00 07:00 Intake Total 1250 ml 900 ml Output Total 1850 ml Balance 1250 ml -950 ml Problem List Problems Medical Problems: (1) Abdominal pain Status: Acute (2) Acute diverticulitis Status: Acute (3) BPH (benign prostatic hyperplasia) Status: Acute (4) Nausea & vomiting Status: Acute (5) Renal mass Status: Acute Assessment Diverticulitis, responding well. Plan of Care: Continue current Tx, Mgmt Plan of Care Note Advance diet ok to full liquids. Continue iv antibiotics. If continues to improve, po antibiotics and home tomorrow? PIPPA RIVERA MD Jul 22, 2016 12:38
--- NOTE | 2016-07-22 13:55 | PDOC ---
PROGRESS NOTES Chief Complaint Chief Complaint CC: Abdominal pain A/P Sigmoid diverticulitis Plan NPO IV Hydration IV Morphine prn for pain IV Zofran IV Flagyl ID FOLLOWING History of Present Illness History of Present Illness Patient reports feeling better Has diagnosed diverticulitis, diverticulosis Renal mass noted on CT Region in [place]Q still painful to touch He tolerating clear liquids well and may start solid foods soon. There has been a little difficulty with his IV as of late. Vitals Vitals Vital Signs Date Time Temp Pulse Resp B/P Pulse Ox O2 Delivery O2 Flow Rate FiO2 07/22/16 11:00 98.4 59 20 118/58 96 Room Air 98.4 07/21/16 08:00 2.0 Physical Exam General: Alert, Oriented X3, Cooperative, No acute distress Heart: Regular rate, Normal S1, Normal S2, No murmurs Lungs: Clear, Other (Symmetric breathing motions) Abdomen: Normal bowel sounds, Soft, No tenderness, No hepatosplenomegaly, No masses Extremities: No clubbing, No cyanosis Skin: No rashes, No breakdown Labs LABS Laboratory Tests Test 07/22/16 03:50 White Blood Count 5.4x10^3/uL (4.0-11.0) Red Blood Count 4.56x10^6/uL (4.30-5.70) Hemoglobin 13.5g/dL (13.0-17.5) Hematocrit 41.1% (39.0-53.0) Mean Corpuscular Volume 90fL (79-100) Mean Corpuscular Hemoglobin 30pg (25-35) Mean Corpuscular Hemoglobin Concent 33g/dL (31-37) Red Cell Distribution Width 13.3% (11.5-14.5) Platelet Count 127x10^3/uL (140-400) Neutrophils (%) (Auto) 55% (31-73) Lymphocytes (%) (Auto) 29% (24-48) Monocytes (%) (Auto) 13% (0-9) Eosinophils (%) (Auto) 3% (0-3) Basophils (%) (Auto) 0% (0-3) Neutrophils # (Auto) 2.9x10^3uL (1.8-7.7) Lymphocytes # (Auto) 1.6x10^3/uL (1.0-4.8) Monocytes # (Auto) 0.7x10^3/uL (0.0-1.1) Eosinophils # (Auto) 0.2x10^3/uL (0.0-0.7) Basophils # (Auto) 0.0x10^3/uL (0.0-0.2) Sodium Level 140mmol/L (136-145) Potassium Level 4.5mmol/L (3.5-5.1) Chloride Level 107mmol/L (98-107) Carbon Dioxide Level 28mmol/L (21-32) Anion Gap 5 (6-14) Blood Urea Nitrogen 10mg/dL (8-26) Creatinine 1.0mg/dL (0.7-1.3) Estimated GFR (Cockcroft-Gault) 71.7 Glucose Level 102mg/dL (70-99) Calcium Level 8.3mg/dL (8.5-10.1) Assessment and Plan Assessmemt and Plan Problems Medical Problems: (1) Abdominal pain Status: Acute (2) Acute diverticulitis Status: Acute (3) BPH (benign prostatic hyperplasia) Status: Acute (4) Nausea & vomiting Status: Acute (5) Renal mass Status: Acute Patient reports feeling better Has diagnosed diverticulitis, diverticulosis Renal mass noted on CT Region in [place]Q still painful to touch He tolerating clear liquids well and may start solid foods soon. There has been a little difficulty with his IV as of late. 1. Diverticulitis -Noted on CT -Temperature stable -WBC w/n/l -Continue metronidazole, ciprofloxacin -Start solid food diet as tolerated 2. Left renal mass / complicated cyst -Also noted on CT -Hematuria present -Will need to follow up with current urologist 3. BPH -Continue tamsulosin and finasteride Problems: Comment Review of Relevant I have reviewed the following items orion (where applicable) has been applied. Labs Laboratory Tests Test 07/21/16 04:15 07/22/16 03:50 White Blood Count 8.7x10^3/uL (4.0-11.0) 5.4x10^3/uL (4.0-11.0) Red Blood Count 4.38x10^6/uL (4.30-5.70) 4.56x10^6/uL (4.30-5.70) Hemoglobin 13.2g/dL (13.0-17.5) 13.5g/dL (13.0-17.5) Hematocrit 39.6% (39.0-53.0) 41.1% (39.0-53.0) Mean Corpuscular Volume 90fL (79-100) 90fL (79-100) Mean Corpuscular Hemoglobin 30pg (25-35) 30pg (25-35) Mean Corpuscular Hemoglobin Concent 33g/dL (31-37) 33g/dL (31-37) Red Cell Distribution Width 13.4% (11.5-14.5) 13.3% (11.5-14.5) Platelet Count 116x10^3/uL (140-400) 127x10^3/uL (140-400) Neutrophils (%) (Auto) 71% (31-73) 55% (31-73) Lymphocytes (%) (Auto) 16% (24-48) 29% (24-48) Monocytes (%) (Auto) 12% (0-9) 13% (0-9) Eosinophils (%) (Auto) 1% (0-3) 3% (0-3) Basophils (%) (Auto) 0% (0-3) 0% (0-3) Neutrophils # (Auto) 6.2x10^3uL (1.8-7.7) 2.9x10^3uL (1.8-7.7) Lymphocytes # (Auto) 1.4x10^3/uL (1.0-4.8) 1.6x10^3/uL (1.0-4.8) Monocytes # (Auto) 1.0x10^3/uL (0.0-1.1) 0.7x10^3/uL (0.0-1.1) Eosinophils # (Auto) 0.1x10^3/uL (0.0-0.7) 0.2x10^3/uL (0.0-0.7) Basophils # (Auto) 0.0x10^3/uL (0.0-0.2) 0.0x10^3/uL (0.0-0.2) Sodium Level 140mmol/L (136-145) 140mmol/L (136-145) Potassium Level 3.7mmol/L (3.5-5.1) 4.5mmol/L (3.5-5.1) Chloride Level 107mmol/L (98-107) 107mmol/L (98-107) Carbon Dioxide Level 25mmol/L (21-32) 28mmol/L (21-32) Anion Gap 8 (6-14) 5 (6-14) Blood Urea Nitrogen 14mg/dL (8-26) 10mg/dL (8-26) Creatinine 0.9mg/dL (0.7-1.3) 1.0mg/dL (0.7-1.3) Estimated GFR (Cockcroft-Gault) 81.0 71.7 Glucose Level 101mg/dL (70-99) 102mg/dL (70-99) Calcium Level 7.8mg/dL (8.5-10.1) 8.3mg/dL (8.5-10.1) Laboratory Tests Test 07/22/16 03:50 White Blood Count 5.4x10^3/uL (4.0-11.0) Red Blood Count 4.56x10^6/uL (4.30-5.70) Hemoglobin 13.5g/dL (13.0-17.5) Hematocrit 41.1% (39.0-53.0) Mean Corpuscular Volume 90fL (79-100) Mean Corpuscular Hemoglobin 30pg (25-35) Mean Corpuscular Hemoglobin Concent 33g/dL (31-37) Red Cell Distribution Width 13.3% (11.5-14.5) Platelet Count 127x10^3/uL (140-400) Neutrophils (%) (Auto) 55% (31-73) Lymphocytes (%) (Auto) 29% (24-48) Monocytes (%) (Auto) 13% (0-9) Eosinophils (%) (Auto) 3% (0-3) Basophils (%) (Auto) 0% (0-3) Neutrophils # (Auto) 2.9x10^3uL (1.8-7.7) Lymphocytes # (Auto) 1.6x10^3/uL (1.0-4.8) Monocytes # (Auto) 0.7x10^3/uL (0.0-1.1) Eosinophils # (Auto) 0.2x10^3/uL (0.0-0.7) Basophils # (Auto) 0.0x10^3/uL (0.0-0.2) Sodium Level 140mmol/L (136-145) Potassium Level 4.5mmol/L (3.5-5.1) Chloride Level 107mmol/L (98-107) Carbon Dioxide Level 28mmol/L (21-32) Anion Gap 5 (6-14) Blood Urea Nitrogen 10mg/dL (8-26) Creatinine 1.0mg/dL (0.7-1.3) Estimated GFR (Cockcroft-Gault) 71.7 Glucose Level 102mg/dL (70-99) Calcium Level 8.3mg/dL (8.5-10.1) Medications Current Medications Sodium Chloride (Iv Sodium Chloride 0.9% 1000ml Bag) 1,000 ml @ 1,000 mls/hr 1X ONCE IV Last administered on 07/20/16 11:18; Start 07/20/16 at 10:30; Stop 07/20/16 at 11:29; Status DC Ondansetron HCl (Zofran) 4 mg 1X ONCE IV Last administered on 07/20/16 11:18 ; Start 07/20/16 at 10:30; Stop 07/20/16 at 10:42; Status DC Fentanyl Citrate (Fentanyl 2ml Vial) 50 mcg PRN Q15MIN PRN IV PAIN GREATER THAN 3/10 Last administered on 07/20/16 14:31; Start 07/20/16 at 10:30; Stop at 10:29; Status DC Iohexol (Omnipaque 300 Mg/ml) 75 ml 1X ONCE IV Last administered on 07/20/16 12:25; Start 07/20/16 at 11:30; Stop 07/20/16 at 11:31; Status DC Info 1 each 1 each PRN DAILY PRN MC SEE COMMENTS; Start 07/20/16 at 11:30; Stop 07/22/16 at 11:29; Status DC Ciprofloxacin Lactate 200 ml @ 200 mls/hr Q12HR IV Last administered on 09:34; Start 07/20/16 at 22:00 Metronidazole 100 ml @ 100 mls/hr 1X ONCE IV Last administered on 07/20/16 14:36; Start 07/20/16 at 13:30; Stop 07/20/16 at 14:29; Status DC Ciprofloxacin Lactate (Cipro 400mg Premix) 200 ml @ 200 mls/hr ONCE ONCE IV Last administered on 07/20/16 17:31; Start 07/20/16 at 13:33; Stop 07/20/16 at 14:32; Status DC Ondansetron HCl (Zofran) 4 mg PRN Q8HRS PRN IV NAUSEA/VOMITING Last administered on 07/20/16 20:34; Start 07/20/16 at 13:45; Stop 07/21/16 at 13:44 ; Status DC Morphine Sulfate 4 mg 4 mg PRN Q2HR PRN IV PAIN Last administered on 07/21/16 06:23; Start 07/20/16 at 13:45; Stop 07/21/16 at 13:44; Status DC Sodium Chloride 1,000 ml @ 100 mls/hr Q10H IV Last administered on 07/21/16 10:52; Start 07/20/16 at 13:31; Stop 07/21/16 at 13:30; Status DC Metronidazole (FLAGYL 500Mmg PREMIX) 100 ml @ 100 mls/hr Q8HRS IV Last administered on 07/22/16 05:34; Start 07/20/16 at 16:00 Finasteride (Proscar) 5 mg DAILY PO Last administered on 07/22/16 09:35; Start 07/21/16 at 10:00 Tamsulosin HCl (Flomax) 0.4 mg DAILY PO Last administered on 07/22/16 09:35; Start 07/21/16 at 10:00 Morphine Sulfate 4 mg PRN Q2HR PRN IV PAIN; Start 07/21/16 at 19:00 Ondansetron HCl (Zofran) 4 mg PRN Q6HRS PRN IV NAUSEA/VOMITING; Start 07/21/16 at 19:00 Active Scripts Active Reported [place] Adults 50+ Tablet (Multivits-Min/Fa/Lycopene/Lut) 1 Each Tablet 1 Each PO DAILY [place] 3 Fish Oil Softgel ([place]-3 Fatty Acids/Fish Oil) 1 Each Capsule.dr 2 Each PO BID Finasteride 5 Mg Tablet 1 Tab PO DAILY Sotalol (Sotalol Hcl) 80 Mg Tablet 40 Mg PO BID Aspir 81 (Aspirin) 81 Mg Tablet. 1 Tab PO DAILY Pristiq ER (Desvenlafaxine Succinate) 25 Mg Tab.er.24h 150 Mg PO DAILY Slow-Mag (Magnesium Chloride) 71.5 Mg Tablet. 71.5 Mg PO BID Flomax (Tamsulosin Hcl) 0.4 Mg Cap.er.24h 0.8 Mg PO HS Omeprazole 20 Mg Tablet. 1 Tab PO BID Vitals/I & O Vital Sign - Last 24 Hours 07/21/16 07/21/16 07/21/16 07/22/16 15:00 19:00 23:00 03:00 Temp 98.4 98.7 98.6 98.7 98.4 98.7 98.6 98.7 Pulse 63 72 64 61 Resp 20 20 18 18 B/P 124/64 133/77 112/52 104/56 Pulse Ox 93 97 97 93 O2 Delivery Room Air Room Air Room Air Room Air 07/22/16 07/22/16 07/22/16 07:00 07:45 11:00 Temp 98.0 98.4 98.0 98.4 Pulse 63 59 Resp 16 20 B/P 128/59 118/58 Pulse Ox 93 96 O2 Delivery Room Air Room Air Room Air Intake and Output 07/21/16 07/21/16 07/22/16 15:00 23:00 07:00 Intake Total 1250 ml 900 ml Output Total 1850 ml Balance 1250 ml -950 ml YANIRA HARRELL III DO Jul 22, 2016 13:55
--- NOTE | 2016-07-22 14:13 | PDOC ---
Infectious Disease Note Subjective Subjective Tolerating clear liquid diet No fever last 24 hours Some abdominal pain, not too bad No BM 4 days. AMbulating halls earlier, feeling tired now ROS ROS GEN: Denies chills, sweats CV: Denies chest pain RESP: Denies shortness of air, cough GI: Denies n/v Vital Sign Vital Signs Vital Signs Date Time Temp Pulse Resp B/P Pulse Ox O2 Delivery O2 Flow Rate FiO2 07/22/16 11:00 98.4 59 20 118/58 96 Room Air 98.4 07/21/16 08:00 2.0 Physical Exam PHYSICAL EXAM GENERAL: Tired appearance HEENT: OC/OP clear NECK: Supple, no JVD, no LN LUNGS: Clear HEART: S1S2, no gallop, no murmur ABD: Soft, NT light palpation, BS present EXT: No edema, no cyanosis LEAD TRAINER: Alert, oriented x 3, no focal neurologic deficit SKIN: No rash IV: ok Labs Lab Laboratory Tests Test 07/22/16 03:50 White Blood Count 5.4x10^3/uL (4.0-11.0) Red Blood Count 4.56x10^6/uL (4.30-5.70) Hemoglobin 13.5g/dL (13.0-17.5) Hematocrit 41.1% (39.0-53.0) Mean Corpuscular Volume 90fL (79-100) Mean Corpuscular Hemoglobin 30pg (25-35) Mean Corpuscular Hemoglobin Concent 33g/dL (31-37) Red Cell Distribution Width 13.3% (11.5-14.5) Platelet Count 127x10^3/uL (140-400) Neutrophils (%) (Auto) 55% (31-73) Lymphocytes (%) (Auto) 29% (24-48) Monocytes (%) (Auto) 13% (0-9) Eosinophils (%) (Auto) 3% (0-3) Basophils (%) (Auto) 0% (0-3) Neutrophils # (Auto) 2.9x10^3uL (1.8-7.7) Lymphocytes # (Auto) 1.6x10^3/uL (1.0-4.8) Monocytes # (Auto) 0.7x10^3/uL (0.0-1.1) Eosinophils # (Auto) 0.2x10^3/uL (0.0-0.7) Basophils # (Auto) 0.0x10^3/uL (0.0-0.2) Sodium Level 140mmol/L (136-145) Potassium Level 4.5mmol/L (3.5-5.1) Chloride Level 107mmol/L (98-107) Carbon Dioxide Level 28mmol/L (21-32) Anion Gap 5 (6-14) Blood Urea Nitrogen 10mg/dL (8-26) Creatinine 1.0mg/dL (0.7-1.3) Estimated GFR (Cockcroft-Gault) 71.7 Glucose Level 102mg/dL (70-99) Calcium Level 8.3mg/dL (8.5-10.1) CT abd/pelvis IMPRESSION: 1. Extensive colonic diverticulosis. 2. Mural thickening and paracolic inflammation in the mid to distal sigmoid colon compatible with acute diverticulitis. An underlying colonic neoplasm cannot be excluded. 3. Small left renal mass compatible with a complicated cyst versus a solid mass. Objective Assessment Fever. Resolved Leukocytosis. Resolved Diverticulitis HTN Plan Plan of Care Continue cipro and Flagyl. IV. Change to po soon Supportive care Attending Co-Sign Attending Co-Sign The patient was seen and interviewed as well as examined at the bedside. The chart was reviewed. The case was discussed. Agree with the plan of care. RHETT HAYDEN APRN Jul 22, 2016 14:13 VICTORINO OSPINA MD Jul 22, 2016 14:55
[2016-07-22 15:00] VITALS: BP 118/58
[2016-07-22 19:30] VITALS: BP 125/72
[2016-07-22] MEDS: MAGNESIUM CHLORIDE ER 64 MG TABLET.ER PO SCH ×2 (21:19)
[2016-07-22] MEDS: OMEGA-3 FATTY ACIDS/FISH OIL 1,000 MG CAPSULE. PO SCH (21:20)
[2016-07-22] MEDS: SOTALOL 80 MG TABLET. PO SCH (21:26)
[2016-07-22 23:22] VITALS: BP 143/74
[2016-07-23 03:27] VITALS: BP 128/72
[2016-07-23 05:36] LABS: BASO % 1 % (0-3); EOS % 4 % (0-3); HEMATOCRIT 44.2 % (39.0-53.0); HEMOGLOBIN 14.5 g/dL (13.0-17.5); LYMPH # 1.4 x10^3/uL (1.0-4.8); LYMPH % 34 % (24-48); MEAN CORPUSCULAR HEMOGLOBIN 30 pg (25-35); MEAN CORPUSCULAR HGB CONC 33 g/dL (31-37); MEAN CORPUSCULAR VOLUME 90 fL (79-100); MONO % 15 % (0-9); NEUT % 46 % (31-73); PLATELET COUNT 160 x10^3/uL (140-400); RED BLOOD COUNT 4.89 x10^6/uL (4.30-5.70); RED CELL DISTRIBUTION WIDTH 13.1 % (11.5-14.5); WHITE BLOOD COUNT 4.2 x10^3/uL (4.0-11.0)
[2016-07-23 05:52] LABS: CALCIUM 8.8 mg/dL (8.5-10.1); CREATININE 0.9 mg/dL (0.7-1.3); POTASSIUM 4.3 mmol/L (3.5-5.1)
[2016-07-23] MEDS: METRONIDAZOLE 500mg PREMIX 100 ML IV SCH (06:02)
[2016-07-23 07:00] VITALS: BP 137/76
[2016-07-23] MEDS ORDERED: PANTOPRAZOLE 40 MG TABLET.DR. PO SCH (07:30)
[2016-07-23] MEDS: CIPROFLOXACIN 400MG PREMIX 200 ML IV SCH (08:43)
[2016-07-23] MEDS: MAGNESIUM CHLORIDE ER 64 MG TABLET.ER PO SCH ×2 (08:44)
[2016-07-23] MEDS: OMEGA-3 FATTY ACIDS/FISH OIL 1,000 MG CAPSULE. PO SCH (08:44)
[2016-07-23] MEDS: SOTALOL 80 MG TABLET. PO SCH (08:45)
[2016-07-23] MEDS ORDERED: DESVENLAFAXINE 50 MG TAB.ER.24H. PO SCH (09:00)
[2016-07-23] MEDS ORDERED: FINASTERIDE 5 MG TABLET. PO SCH (09:00)
[2016-07-23] MEDS ORDERED: ASPIRIN ENTERIC COATED 81 MG TABLET.DR. PO SCH (09:00)
[2016-07-23] MEDS ORDERED: MULTIVITAMIN with MINERAL TABLET. PO SCH (09:00)
--- NOTE | 2016-07-23 10:10 | PDOC ---
G I PROGRESS NOTE Subjective No complaints. Essentially pain-free. Physical Exam Lungs clear. RRR Abdomen soft. NO tenderness. Review of Relevant I have reviewed the following items orion (where applicable) has been applied. Labs Laboratory Tests Test 07/22/16 03:50 07/23/16 05:10 White Blood Count 5.4x10^3/uL (4.0-11.0) 4.2x10^3/uL (4.0-11.0) Red Blood Count 4.56x10^6/uL (4.30-5.70) 4.89x10^6/uL (4.30-5.70) Hemoglobin 13.5g/dL (13.0-17.5) 14.5g/dL (13.0-17.5) Hematocrit 41.1% (39.0-53.0) 44.2% (39.0-53.0) Mean Corpuscular Volume 90fL (79-100) 90fL (79-100) Mean Corpuscular Hemoglobin 30pg (25-35) 30pg (25-35) Mean Corpuscular Hemoglobin Concent 33g/dL (31-37) 33g/dL (31-37) Red Cell Distribution Width 13.3% (11.5-14.5) 13.1% (11.5-14.5) Platelet Count 127x10^3/uL (140-400) 160x10^3/uL (140-400) Neutrophils (%) (Auto) 55% (31-73) 46% (31-73) Lymphocytes (%) (Auto) 29% (24-48) 34% (24-48) Monocytes (%) (Auto) 13% (0-9) 15% (0-9) Eosinophils (%) (Auto) 3% (0-3) 4% (0-3) Basophils (%) (Auto) 0% (0-3) 1% (0-3) Neutrophils # (Auto) 2.9x10^3uL (1.8-7.7) 2.0x10^3uL (1.8-7.7) Lymphocytes # (Auto) 1.6x10^3/uL (1.0-4.8) 1.4x10^3/uL (1.0-4.8) Monocytes # (Auto) 0.7x10^3/uL (0.0-1.1) 0.6x10^3/uL (0.0-1.1) Eosinophils # (Auto) 0.2x10^3/uL (0.0-0.7) 0.2x10^3/uL (0.0-0.7) Basophils # (Auto) 0.0x10^3/uL (0.0-0.2) 0.0x10^3/uL (0.0-0.2) Sodium Level 140mmol/L (136-145) 143mmol/L (136-145) Potassium Level 4.5mmol/L (3.5-5.1) 4.3mmol/L (3.5-5.1) Chloride Level 107mmol/L (98-107) 107mmol/L (98-107) Carbon Dioxide Level 28mmol/L (21-32) 28mmol/L (21-32) Anion Gap 5 (6-14) 8 (6-14) Blood Urea Nitrogen 10mg/dL (8-26) 10mg/dL (8-26) Creatinine 1.0mg/dL (0.7-1.3) 0.9mg/dL (0.7-1.3) Estimated GFR (Cockcroft-Gault) 71.7 81.0 Glucose Level 102mg/dL (70-99) 115mg/dL (70-99) Calcium Level 8.3mg/dL (8.5-10.1) 8.8mg/dL (8.5-10.1) Laboratory Tests Test 07/23/16 05:10 White Blood Count 4.2x10^3/uL (4.0-11.0) Red Blood Count 4.89x10^6/uL (4.30-5.70) Hemoglobin 14.5g/dL (13.0-17.5) Hematocrit 44.2% (39.0-53.0) Mean Corpuscular Volume 90fL (79-100) Mean Corpuscular Hemoglobin 30pg (25-35) Mean Corpuscular Hemoglobin Concent 33g/dL (31-37) Red Cell Distribution Width 13.1% (11.5-14.5) Platelet Count 160x10^3/uL (140-400) Neutrophils (%) (Auto) 46% (31-73) Lymphocytes (%) (Auto) 34% (24-48) Monocytes (%) (Auto) 15% (0-9) Eosinophils (%) (Auto) 4% (0-3) Basophils (%) (Auto) 1% (0-3) Neutrophils # (Auto) 2.0x10^3uL (1.8-7.7) Lymphocytes # (Auto) 1.4x10^3/uL (1.0-4.8) Monocytes # (Auto) 0.6x10^3/uL (0.0-1.1) Eosinophils # (Auto) 0.2x10^3/uL (0.0-0.7) Basophils # (Auto) 0.0x10^3/uL (0.0-0.2) Sodium Level 143mmol/L (136-145) Potassium Level 4.3mmol/L (3.5-5.1) Chloride Level 107mmol/L (98-107) Carbon Dioxide Level 28mmol/L (21-32) Anion Gap 8 (6-14) Blood Urea Nitrogen 10mg/dL (8-26) Creatinine 0.9mg/dL (0.7-1.3) Estimated GFR (Cockcroft-Gault) 81.0 Glucose Level 115mg/dL (70-99) Calcium Level 8.8mg/dL (8.5-10.1) Medications Current Medications Sodium Chloride (Iv Sodium Chloride 0.9% 1000ml Bag) 1,000 ml @ 1,000 mls/hr 1X ONCE IV Last administered on 07/20/16 11:18; Start 07/20/16 at 10:30; Stop 07/20/16 at 11:29; Status DC Ondansetron HCl (Zofran) 4 mg 1X ONCE IV Last administered on 07/20/16 11:18 ; Start 07/20/16 at 10:30; Stop 07/20/16 at 10:42; Status DC Fentanyl Citrate (Fentanyl 2ml Vial) 50 mcg PRN Q15MIN PRN IV PAIN GREATER THAN 3/10 Last administered on 07/20/16 14:31; Start 07/20/16 at 10:30; Stop at 10:29; Status DC Iohexol (Omnipaque 300 Mg/ml) 75 ml 1X ONCE IV Last administered on 07/20/16 12:25; Start 07/20/16 at 11:30; Stop 07/20/16 at 11:31; Status DC Info 1 each 1 each PRN DAILY PRN MC SEE COMMENTS; Start 07/20/16 at 11:30; Stop 07/22/16 at 11:29; Status DC Ciprofloxacin Lactate 200 ml @ 200 mls/hr Q12HR IV Last administered on 08:43; Start 07/20/16 at 22:00 Metronidazole 100 ml @ 100 mls/hr 1X ONCE IV Last administered on 07/20/16 14:36; Start 07/20/16 at 13:30; Stop 07/20/16 at 14:29; Status DC Ciprofloxacin Lactate (Cipro 400mg Premix) 200 ml @ 200 mls/hr ONCE ONCE IV Last administered on 07/20/16 17:31; Start 07/20/16 at 13:33; Stop 07/20/16 at 14:32; Status DC Ondansetron HCl (Zofran) 4 mg PRN Q8HRS PRN IV NAUSEA/VOMITING Last administered on 07/20/16 20:34; Start 07/20/16 at 13:45; Stop 07/21/16 at 13:44 ; Status DC Morphine Sulfate 4 mg 4 mg PRN Q2HR PRN IV PAIN Last administered on 07/21/16 06:23; Start 07/20/16 at 13:45; Stop 07/21/16 at 13:44; Status DC Sodium Chloride 1,000 ml @ 100 mls/hr Q10H IV Last administered on 07/21/16 10:52; Start 07/20/16 at 13:31; Stop 07/21/16 at 13:30; Status DC Metronidazole (FLAGYL 500Mmg PREMIX) 100 ml @ 100 mls/hr Q8HRS IV Last administered on 07/23/16 06:02; Start 07/20/16 at 16:00 Finasteride (Proscar) 5 mg DAILY PO Last administered on 07/22/16 09:35; Start 07/21/16 at 10:00; Stop 07/22/16 at 19:38; Status DC Tamsulosin HCl (Flomax) 0.4 mg DAILY PO Last administered on 07/22/16 09:35; Start 07/21/16 at 10:00; Stop 07/22/16 at 19:38; Status DC Morphine Sulfate 4 mg PRN Q2HR PRN IV PAIN; Start 07/21/16 at 19:00 Ondansetron HCl (Zofran) 4 mg PRN Q6HRS PRN IV NAUSEA/VOMITING; Start 07/21/16 at 19:00 Aspirin (Ecotrin) 81 mg DAILY PO Last administered on 07/23/16 08:44; Start 07/23/16 at 09:00 Desvenlafaxine Succinate (Pristiq Er) 150 mg DAILY PO Last administered on 08:44; Start 07/23/16 at 09:00 Finasteride (Proscar) 5 mg DAILY PO Last administered on 07/23/16 08:44; Start 07/23/16 at 09:00 Sotalol HCl (Betapace) 40 mg BID PO Last administered on 07/23/16 08:45; Start 07/22/16 at 21:00 Tamsulosin HCl (Flomax) 0.8 mg HS PO ; Start 07/23/16 at 21:00 Magnesium Chloride (Mag Delay) 64 mg BID PO Last administered on 07/23/16 08:44 ; Start 07/22/16 at 21:00 Multivitamins (Thera M Plus) 1 tab DAILY PO Last administered on 07/23/16 08:44 ; Start 07/23/16 at 09:00 Fish Oil (Fish Oil) 2,000 mg BID PO Last administered on 07/23/16 08:44; Start 07/22/16 at 21:00 Pantoprazole Sodium (Protonix) 40 mg BIDAC PO Last administered on 07/23/16 07: 15; Start 07/23/16 at 07:30 Active Scripts Active Reported [place] Adults 50+ Tablet (Multivits-Min/Fa/Lycopene/Lut) 1 Each Tablet 1 Each PO DAILY [place] 3 Fish Oil Softgel ([place]-3 Fatty Acids/Fish Oil) 1 Each Capsule.dr 2 Each PO BID Finasteride 5 Mg Tablet 1 Tab PO DAILY Sotalol (Sotalol Hcl) 80 Mg Tablet 40 Mg PO BID Aspir 81 (Aspirin) 81 Mg Tablet.dr 1 Tab PO DAILY Pristiq ER (Desvenlafaxine Succinate) 25 Mg Tab.er.24h 150 Mg PO DAILY Slow-Mag (Magnesium Chloride) 71.5 Mg Tablet. 71.5 Mg PO BID Flomax (Tamsulosin Hcl) 0.4 Mg Cap.er.24h 0.8 Mg PO HS Omeprazole 20 Mg Tablet.dr 1 Tab PO BID Vitals/I & O Vital Sign - Last 24 Hours 07/22/16 07/22/16 07/22/16 07/22/16 11:00 15:00 19:30 20:25 Temp 98.4 98.0 98.2 98.4 98.0 98.2 Pulse 59 67 77 Resp 20 16 18 B/P 118/58 118/58 125/72 Pulse Ox 96 94 94 O2 Delivery Room Air Room Air Room Air Room Air 07/22/16 07/22/16 07/23/16 07/23/16 21:26 23:22 03:27 07:00 Temp 98.1 98.3 98.1 98.1 98.3 98.1 Pulse 77 46 52 61 Resp 18 18 20 B/P 125/72 143/74 128/72 137/76 Pulse Ox 95 97 96 O2 Delivery Room Air Room Air Room Air 07/23/16 08:45 Pulse 61 B/P 137/76 Intake and Output 07/22/16 07/22/16 07/23/16 15:00 23:00 07:00 Intake Total 300 ml Output Total 400 ml Balance -100 ml Problem List Problems Medical Problems: (1) Abdominal pain Status: Acute (2) Acute diverticulitis Status: Acute (3) BPH (benign prostatic hyperplasia) Status: Acute (4) Nausea & vomiting Status: Acute (5) Renal mass Status: Acute Assessment Diverticulitis, better. Plan of Care: Continue current Tx, Mgmt Plan of Care Note PO meds/home OK with me with balance of 7-10 day course of antibiotics. Can f/u with us prn. PIPPA RIVERA MD Jul 23, 2016 10:09
[2016-07-23 11:00] VITALS: BP 137/77
[2016-07-23] MEDS ORDERED: METRONIDAZOLE 500 MG TABLET. PO SCH (12:00)
--- NOTE | 2016-07-23 15:15 | PDOC ---
PROGRESS NOTES Chief Complaint Chief Complaint CC: Abdominal pain Diverticulitis Exploratory abdominal procedure Hx cholecystectomy Endoscopy Nausea Vomiting GERD Depression BPH Prostate problems Hypertension Musculoskeletal disorder Previous colon resection History of Present Illness History of Present Illness Patient reports he is feeling better. His diverticulitis has resolved as the pain and fever associated with it are no longer present. We discussed the option of giving him pain medications with his discharge, but he was uninterested as he experiencing no pain. He appears in no acute distress. Vitals Vitals Vital Signs Date Time Temp Pulse Resp B/P Pulse Ox O2 Delivery O2 Flow Rate FiO2 07/23/16 11:00 98.5 51 20 137/77 96 Room Air 98.5 Physical Exam General: Alert, Oriented X3, Cooperative, No acute distress Heart: Regular rate, Normal S1, Normal S2, No murmurs Lungs: Clear, Other (Symmetric chest excursion) Abdomen: Normal bowel sounds, Soft Extremities: No clubbing, No cyanosis Skin: No rashes, No breakdown Labs LABS Laboratory Tests Test 07/23/16 05:10 White Blood Count 4.2x10^3/uL (4.0-11.0) Red Blood Count 4.89x10^6/uL (4.30-5.70) Hemoglobin 14.5g/dL (13.0-17.5) Hematocrit 44.2% (39.0-53.0) Mean Corpuscular Volume 90fL (79-100) Mean Corpuscular Hemoglobin 30pg (25-35) Mean Corpuscular Hemoglobin Concent 33g/dL (31-37) Red Cell Distribution Width 13.1% (11.5-14.5) Platelet Count 160x10^3/uL (140-400) Neutrophils (%) (Auto) 46% (31-73) Lymphocytes (%) (Auto) 34% (24-48) Monocytes (%) (Auto) 15% (0-9) Eosinophils (%) (Auto) 4% (0-3) Basophils (%) (Auto) 1% (0-3) Neutrophils # (Auto) 2.0x10^3uL (1.8-7.7) Lymphocytes # (Auto) 1.4x10^3/uL (1.0-4.8) Monocytes # (Auto) 0.6x10^3/uL (0.0-1.1) Eosinophils # (Auto) 0.2x10^3/uL (0.0-0.7) Basophils # (Auto) 0.0x10^3/uL (0.0-0.2) Sodium Level 143mmol/L (136-145) Potassium Level 4.3mmol/L (3.5-5.1) Chloride Level 107mmol/L (98-107) Carbon Dioxide Level 28mmol/L (21-32) Anion Gap 8 (6-14) Blood Urea Nitrogen 10mg/dL (8-26) Creatinine 0.9mg/dL (0.7-1.3) Estimated GFR (Cockcroft-Gault) 81.0 Glucose Level 115mg/dL (70-99) Calcium Level 8.8mg/dL (8.5-10.1) Review of Systems Review of Systems The patient reports he still struggles to keep a good appetite both here at the hospital and at home. He has not had a bowel movement recently and is not passing gas. He has not had recent night sweats or fatigue. Assessment and Plan Assessmemt and Plan Problems Medical Problems: (1) Abdominal pain Status: Acute (2) Acute diverticulitis Status: Acute (3) BPH (benign prostatic hyperplasia) Status: Acute (4) Nausea & vomiting Status: Acute (5) Renal mass Status: Acute Assessment: CC: Abdominal pain Diverticulitis Exploratory abdominal procedure Hx cholecystectomy Endoscopy Nausea Vomiting GERD Depression BPH Prostate problems Hypertension Musculoskeletal disorder Previous partial colon resection Plan: 1. Discharge following resolution of diverticulitis 2. Ciprofloxacin and metronidazole at discharge 3. Continue home medications 4. Pain management prophylaxis 5. Ask patient to monitor for acute relapse of symptoms 6. Appreciate consult from urology, GI, and infectious disease Problems: Comment Review of Relevant I have reviewed the following items orion (where applicable) has been applied. Labs Laboratory Tests Test 07/22/16 03:50 07/23/16 05:10 White Blood Count 5.4x10^3/uL (4.0-11.0) 4.2x10^3/uL (4.0-11.0) Red Blood Count 4.56x10^6/uL (4.30-5.70) 4.89x10^6/uL (4.30-5.70) Hemoglobin 13.5g/dL (13.0-17.5) 14.5g/dL (13.0-17.5) Hematocrit 41.1% (39.0-53.0) 44.2% (39.0-53.0) Mean Corpuscular Volume 90fL (79-100) 90fL (79-100) Mean Corpuscular Hemoglobin 30pg (25-35) 30pg (25-35) Mean Corpuscular Hemoglobin Concent 33g/dL (31-37) 33g/dL (31-37) Red Cell Distribution Width 13.3% (11.5-14.5) 13.1% (11.5-14.5) Platelet Count 127x10^3/uL (140-400) 160x10^3/uL (140-400) Neutrophils (%) (Auto) 55% (31-73) 46% (31-73) Lymphocytes (%) (Auto) 29% (24-48) 34% (24-48) Monocytes (%) (Auto) 13% (0-9) 15% (0-9) Eosinophils (%) (Auto) 3% (0-3) 4% (0-3) Basophils (%) (Auto) 0% (0-3) 1% (0-3) Neutrophils # (Auto) 2.9x10^3uL (1.8-7.7) 2.0x10^3uL (1.8-7.7) Lymphocytes # (Auto) 1.6x10^3/uL (1.0-4.8) 1.4x10^3/uL (1.0-4.8) Monocytes # (Auto) 0.7x10^3/uL (0.0-1.1) 0.6x10^3/uL (0.0-1.1) Eosinophils # (Auto) 0.2x10^3/uL (0.0-0.7) 0.2x10^3/uL (0.0-0.7) Basophils # (Auto) 0.0x10^3/uL (0.0-0.2) 0.0x10^3/uL (0.0-0.2) Sodium Level 140mmol/L (136-145) 143mmol/L (136-145) Potassium Level 4.5mmol/L (3.5-5.1) 4.3mmol/L (3.5-5.1) Chloride Level 107mmol/L (98-107) 107mmol/L (98-107) Carbon Dioxide Level 28mmol/L (21-32) 28mmol/L (21-32) Anion Gap 5 (6-14) 8 (6-14) Blood Urea Nitrogen 10mg/dL (8-26) 10mg/dL (8-26) Creatinine 1.0mg/dL (0.7-1.3) 0.9mg/dL (0.7-1.3) Estimated GFR (Cockcroft-Gault) 71.7 81.0 Glucose Level 102mg/dL (70-99) 115mg/dL (70-99) Calcium Level 8.3mg/dL (8.5-10.1) 8.8mg/dL (8.5-10.1) Laboratory Tests Test 07/23/16 05:10 White Blood Count 4.2x10^3/uL (4.0-11.0) Red Blood Count 4.89x10^6/uL (4.30-5.70) Hemoglobin 14.5g/dL (13.0-17.5) Hematocrit 44.2% (39.0-53.0) Mean Corpuscular Volume 90fL (79-100) Mean Corpuscular Hemoglobin 30pg (25-35) Mean Corpuscular Hemoglobin Concent 33g/dL (31-37) Red Cell Distribution Width 13.1% (11.5-14.5) Platelet Count 160x10^3/uL (140-400) Neutrophils (%) (Auto) 46% (31-73) Lymphocytes (%) (Auto) 34% (24-48) Monocytes (%) (Auto) 15% (0-9) Eosinophils (%) (Auto) 4% (0-3) Basophils (%) (Auto) 1% (0-3) Neutrophils # (Auto) 2.0x10^3uL (1.8-7.7) Lymphocytes # (Auto) 1.4x10^3/uL (1.0-4.8) Monocytes # (Auto) 0.6x10^3/uL (0.0-1.1) Eosinophils # (Auto) 0.2x10^3/uL (0.0-0.7) Basophils # (Auto) 0.0x10^3/uL (0.0-0.2) Sodium Level 143mmol/L (136-145) Potassium Level 4.3mmol/L (3.5-5.1) Chloride Level 107mmol/L (98-107) Carbon Dioxide Level 28mmol/L (21-32) Anion Gap 8 (6-14) Blood Urea Nitrogen 10mg/dL (8-26) Creatinine 0.9mg/dL (0.7-1.3) Estimated GFR (Cockcroft-Gault) 81.0 Glucose Level 115mg/dL (70-99) Calcium Level 8.8mg/dL (8.5-10.1) Medications Current Medications Sodium Chloride (Iv Sodium Chloride 0.9% 1000ml Bag) 1,000 ml @ 1,000 mls/hr 1X ONCE IV Last administered on 07/20/16 11:18; Start 07/20/16 at 10:30; Stop 07/20/16 at 11:29; Status DC Ondansetron HCl (Zofran) 4 mg 1X ONCE IV Last administered on 07/20/16 11:18 ; Start 07/20/16 at 10:30; Stop 07/20/16 at 10:42; Status DC Fentanyl Citrate (Fentanyl 2ml Vial) 50 mcg PRN Q15MIN PRN IV PAIN GREATER THAN 3/10 Last administered on 07/20/16 14:31; Start 07/20/16 at 10:30; Stop at 10:29; Status DC Iohexol (Omnipaque 300 Mg/ml) 75 ml 1X ONCE IV Last administered on 07/20/16 12:25; Start 07/20/16 at 11:30; Stop 07/20/16 at 11:31; Status DC Info 1 each 1 each PRN DAILY PRN MC SEE COMMENTS; Start 07/20/16 at 11:30; Stop 07/22/16 at 11:29; Status DC Ciprofloxacin Lactate 200 ml @ 200 mls/hr Q12HR IV Last administered on 08:43; Start 07/20/16 at 22:00; Stop 07/23/16 at 10:37; Status DC Metronidazole 100 ml @ 100 mls/hr 1X ONCE IV Last administered on 07/20/16 14:36; Start 07/20/16 at 13:30; Stop 07/20/16 at 14:29; Status DC Ciprofloxacin Lactate (Cipro 400mg Premix) 200 ml @ 200 mls/hr ONCE ONCE IV Last administered on 07/20/16 17:31; Start 07/20/16 at 13:33; Stop 07/20/16 at 14:32; Status DC Ondansetron HCl (Zofran) 4 mg PRN Q8HRS PRN IV NAUSEA/VOMITING Last administered on 07/20/16 20:34; Start 07/20/16 at 13:45; Stop 07/21/16 at 13:44 ; Status DC Morphine Sulfate 4 mg 4 mg PRN Q2HR PRN IV PAIN Last administered on 07/21/16 06:23; Start 07/20/16 at 13:45; Stop 07/21/16 at 13:44; Status DC Sodium Chloride 1,000 ml @ 100 mls/hr Q10H IV Last administered on 07/21/16 10:52; Start 07/20/16 at 13:31; Stop 07/21/16 at 13:30; Status DC Metronidazole (FLAGYL 500Mmg PREMIX) 100 ml @ 100 mls/hr Q8HRS IV Last administered on 07/23/16 06:02; Start 07/20/16 at 16:00; Stop 07/23/16 at 10:37; Status DC Finasteride (Proscar) 5 mg DAILY PO Last administered on 07/22/16 09:35; Start 07/21/16 at 10:00; Stop 07/22/16 at 19:38; Status DC Tamsulosin HCl (Flomax) 0.4 mg DAILY PO Last administered on 07/22/16 09:35; Start 07/21/16 at 10:00; Stop 07/22/16 at 19:38; Status DC Morphine Sulfate 4 mg PRN Q2HR PRN IV PAIN; Start 07/21/16 at 19:00 Ondansetron HCl (Zofran) 4 mg PRN Q6HRS PRN IV NAUSEA/VOMITING; Start 07/21/16 at 19:00 Aspirin (Ecotrin) 81 mg DAILY PO Last administered on 07/23/16 08:44; Start 07/23/16 at 09:00 Desvenlafaxine Succinate (Pristiq Er) 150 mg DAILY PO Last administered on 08:44; Start 07/23/16 at 09:00 Finasteride (Proscar) 5 mg DAILY PO Last administered on 07/23/16 08:44; Start 07/23/16 at 09:00 Sotalol HCl (Betapace) 40 mg BID PO Last administered on 07/23/16 08:45; Start 07/22/16 at 21:00 Tamsulosin HCl (Flomax) 0.8 mg HS PO ; Start 07/23/16 at 21:00 Magnesium Chloride (Mag Delay) 64 mg BID PO Last administered on 07/23/16 08:44 ; Start 07/22/16 at 21:00 Multivitamins (Thera M Plus) 1 tab DAILY PO Last administered on 07/23/16 08:44 ; Start 07/23/16 at 09:00 Fish Oil (Fish Oil) 2,000 mg BID PO Last administered on 07/23/16 08:44; Start 07/22/16 at 21:00 Pantoprazole Sodium (Protonix) 40 mg BIDAC PO Last administered on 07/23/16 07: 15; Start 07/23/16 at 07:30 Ciprofloxacin (Cipro) 500 mg BID PO ; Start 07/23/16 at 21:00 Metronidazole (Flagyl) 500 mg Q6HRS PO Last administered on 07/23/16 12:13; Start 07/23/16 at 12:00 Active Scripts Active Reported Century Adults 50+ Tablet (Multivits-Min/Fa/Lycopene/Lut) 1 Each Tablet 1 Each PO DAILY Turkey 3 Fish Oil Softgel ([place]-3 Fatty Acids/Fish Oil) 1 Each Capsule.dr 2 Each PO BID Finasteride 5 Mg Tablet 1 Tab PO DAILY Sotalol (Sotalol Hcl) 80 Mg Tablet 40 Mg PO BID Aspir 81 (Aspirin) 81 Mg Tablet.dr 1 Tab PO DAILY Pristiq ER (Desvenlafaxine Succinate) 25 Mg Tab.er.24h 150 Mg PO DAILY Slow-Mag (Magnesium Chloride) 71.5 Mg Tablet.dr 71.5 Mg PO BID Flomax (Tamsulosin Hcl) 0.4 Mg Cap.er.24h 0.8 Mg PO HS Omeprazole 20 Mg Tablet.dr 1 Tab PO BID Vitals/I & O Vital Sign - Last 24 Hours 07/22/16 07/22/16 07/22/16 07/22/16 19:30 20:25 21:26 23:22 Temp 98.2 98.1 98.2 98.1 Pulse 77 77 46 Resp 18 18 B/P 125/72 125/72 143/74 Pulse Ox 94 95 O2 Delivery Room Air Room Air Room Air 07/23/16 07/23/16 07/23/16 07/23/16 03:27 07:00 07:50 08:45 Temp 98.3 98.1 98.3 98.1 Pulse 52 61 61 Resp 18 20 B/P 128/72 137/76 137/76 Pulse Ox 97 96 O2 Delivery Room Air Room Air Room Air 07/23/16 11:00 Temp 98.5 98.5 Pulse 51 Resp 20 B/P 137/77 Pulse Ox 96 O2 Delivery Room Air Intake and Output 07/22/16 07/22/16 07/23/16 15:00 23:00 07:00 Intake Total 300 ml Output Total 400 ml Balance -100 ml YANIRA HARRELL III DO Jul 23, 2016 15:15
[2016-07-23] MEDS ORDERED: CIPROFLOXACIN HCL 250 MG TABLET. PO SCH (21:00)
[2016-07-23] MEDS ORDERED: TAMSULOSIN 0.4 MG CAP.ER.24H. PO SCH (21:00)
== END 2016-07-23 16:05 | disposition home or self-care (01) | DRG 871 ==
LOC: ER 09:36 → EEVIPCON 09:36 → 4 NORTH 13:21
PROVIDERS: ADMIT Internal Medicine; ATTEND Internal Medicine
DX: A41.9 Sepsis, unspecified organism (principal); E43 Unspecified severe protein-calorie malnutrition; K57.32 Diverticulitis of large intestine without perforation or abscess without bleeding; R17 Unspecified jaundice; F32.9 Major depressive disorder, single episode, unspecified; I10 Essential (primary) hypertension; K21.9 Gastro-esophageal reflux disease without esophagitis; N40.1 Benign prostatic hyperplasia with lower urinary tract symptoms; R31.29 Other microscopic hematuria; D72.829 Elevated white blood cell count, unspecified; D49.0 Neoplasm of unspecified behavior of digestive system; N28.89 Other specified disorders of kidney and ureter; Z83.3 Family history of diabetes mellitus; Z90.49 Acquired absence of other specified parts of digestive tract
CPT/HCPCS: 36415; 74177; 80048; 80053; 81001; 82274; 83605; 84484; 85027; 85610; 85730; 93005; 96374; 96375; J0744; J2270; J2405; J3010; J3490; J7030; Q9967; 97110; 97116; 99285-25

== ENCOUNTER → 2016-11-02 | Outpatient (CLI) | payer MEDICARE ==
[~2016-11-02] MED LIST: ASPI-482 PO; DESV25TA PO; FINA5TAB4 PO; MAGN71.5 PO; OMEG1CAP38 PO; OMEP20TA8 PO; SOTA80TA48 PO; TAMS0.4C97 PO; [UNRECOGNIZED DRUG - CODE] PO
[2016-11-02 10:56] LABS: BASO # 0.1 x10^3/uL (0.0-0.2); BASO % 1 % (0-3); EOS % 4 % (0-3); LYMPH # 2.8 x10^3/uL (1.0-4.8); LYMPH % 34 % (24-48); MEAN CORPUSCULAR HEMOGLOBIN 30 pg (25-35); MEAN CORPUSCULAR HGB CONC 34 g/dL (31-37); MEAN CORPUSCULAR VOLUME 89 fL (79-100); MONO % 10 % (0-9); NEUT % 50 % (31-73); PLATELET COUNT 181 x10^3/uL (140-400); RED BLOOD COUNT 5.29 x10^6/uL (4.30-5.70); RED CELL DISTRIBUTION WIDTH 13.6 % (11.5-14.5)
[2016-11-02 10:58] LABS: BILIRUBIN,URINE NEGATIVE (NEG); GLUCOSE,URINE NEGATIVE (NEG); NITRITE,URINE NEGATIVE (NEG); PROTEIN,URINE NEGATIVE (NEG-TRACE); UROBILINOGEN,URINE 0.2 mg/dL (0.2 mg/dL); WHITE BLOOD COUNT 8.1 x10^3/uL (4.0-11.0)
[2016-11-02 11:06] LABS: ALBUMIN 2.8 g/dL (3.4-5.0); ALBUMIN/GLOBULIN RATIO 0.9 (1.0-1.7); CALCIUM 8.3 mg/dL (8.5-10.1); GFR 71.5; POTASSIUM 4.8 mmol/L (3.5-5.1); TOTAL BILIRUBIN 0.4 mg/dL (0.2-1.0); TOTAL PROTEIN 5.9 g/dL (6.4-8.2)
[2016-11-02 11:07] LABS: BACTERIA,URINE 0 /HPF (0-FEW); RBC,URINE 0 /HPF (0-2); SQUAMOUS EPITHELIAL CELL,UR OCC /LPF; WBC,URINE OCC /HPF (0-4)
== END | disposition home or self-care (01) ==
LOC: LAB 10:38
PROVIDERS: ATTEND Internal Medicine Cardiovascular Disease
DX: R53.83 Other fatigue (principal); R31.9 Hematuria, unspecified
CPT/HCPCS: 36415; 80053; 81001; 85027

== ENCOUNTER 2016-12-25 18:28 | Inpatient (IN) | payer MEDICARE ==
[~2016-12-25] VITALS: Ht 180.3 cm; Wt 96.2 kg
--- NOTE | 2016-12-25 19:19 | PHYS DOC ---
Past Medical History Past Medical History: GERD, Hypertension, Other Additional Past Medical Histor: BPH Past Surgical History: Appendectomy, Cholecystectomy, Tonsillectomy, Other Additional Past Surgical Histo: COLON RESECTION Alcohol Use: None Drug Use: None Adult General Chief Complaint Chief Complaint: ANXIETY/PANIC ATTACK HPI HPI Patient is a 81 year old M who presents with anxiety. Patient states he's been anxious all day and family found him pacing around his room sweating complaining of anxiety. Patient denies any chest pain or shortness of breath. Patient denies any abdominal pain. Patient states that the [facility] has treated him before for the anxiety. He would like Dr. Eason contacted. Patient has no other complaints. Review of Systems Review of Systems GEN: Anxiety HEENT: Denies blurred vision, sore throat CV: Denies chest pain RESP: Denies shortness of air, cough GI: Denies n/v/d NEURO: Denies confusion, dizziness MSK: Denies weakness, joint pain/swelling Current Medications Current Medications Current Medications Medications (Trade) Dose Ordered Sig/Filomena Start Time Stop Time Status Last Admin Dose Admin Lorazepam (Ativan) 1 mg 1X ONCE 12/25/16 19:30 12/25/16 19:31 DC 12/25/16 19:43 1 MG Allergies Allergies Allergies Coded Allergies Type Severity Reaction Last Updated Verified No Known Drug Allergies 07/20/16 No Physical Exam Physical Exam GEN.: No apparent distress. Alert and oriented. HEENT: Head is normocephalic, atraumatic NECK: Supple. LUNGS: CTAB. HEART: RRR, S1, S2 present. Peripheral pulses intact ABDOMEN: Soft, nontender. Positive bowel sounds. EXTREMITIES: Without any cyanosis. NEUROLOGIC: Normal speech, normal tone PSYCHIATRIC: Anxiety SKIN: No ulcerations Current Patient Data Vital Signs Vital Signs Date Time Temp Pulse Resp B/P (MAP) Pulse Ox O2 Delivery O2 Flow Rate FiO2 12/25/16 20:14 56 15 151/79 (103) 94 Room Air 12/25/16 19:13 98.2 98.2 Lab Values Laboratory Tests Test 12/25/16 19:55 White Blood Count 6.2 x10^3/uL (4.0-11.0) Red Blood Count 5.19 x10^6/uL (4.30-5.70) Hemoglobin 15.7 g/dL (13.0-17.5) Hematocrit 47.2 % (39.0-53.0) Mean Corpuscular Volume 91 fL (79-100) Mean Corpuscular Hemoglobin 30 pg (25-35) Mean Corpuscular Hemoglobin Concent 33 g/dL (31-37) Red Cell Distribution Width 13.9 % (11.5-14.5) Platelet Count 147 x10^3/uL (140-400) Neutrophils (%) (Auto) 51 % (31-73) Lymphocytes (%) (Auto) 35 % (24-48) Monocytes (%) (Auto) 11 % (0-9) H Eosinophils (%) (Auto) 2 % (0-3) Basophils (%) (Auto) 1 % (0-3) Neutrophils # (Auto) 3.1 x10^3uL (1.8-7.7) Lymphocytes # (Auto) 2.2 x10^3/uL (1.0-4.8) Monocytes # (Auto) 0.7 x10^3/uL (0.0-1.1) Eosinophils # (Auto) 0.1 x10^3/uL (0.0-0.7) Basophils # (Auto) 0.1 x10^3/uL (0.0-0.2) Sodium Level 143 mmol/L (136-145) Potassium Level 3.9 mmol/L (3.5-5.1) Chloride Level 106 mmol/L (98-107) Carbon Dioxide Level 27 mmol/L (21-32) Anion Gap 10 (6-14) Blood Urea Nitrogen 15 mg/dL (8-26) Creatinine 0.8 mg/dL (0.7-1.3) Estimated GFR (Cockcroft-Gault) 92.5 BUN/Creatinine Ratio 19 (6-20) Glucose Level 107 mg/dL (70-99) H Calcium Level 8.8 mg/dL (8.5-10.1) Total Bilirubin 0.9 mg/dL (0.2-1.0) Aspartate Amino Transferase (AST) 21 U/L (15-37) Alanine Aminotransferase (ALT) 33 U/L (16-63) Alkaline Phosphatase 77 U/L (46-116) Troponin I Quantitative < 0.017 ng/mL (0.000-0.055) Total Protein 6.3 g/dL (6.4-8.2) L Albumin 3.2 g/dL (3.4-5.0) L Albumin/Globulin Ratio 1.0 (1.0-1.7) Laboratory Tests 12/25/16 19:55 Laboratory Tests 12/25/16 19:55 EKG EKG 1935: EKG shows normal sinus rhythm rate of 59 no STEMI[] Radiology/Procedures Radiology/Procedures Chest ray shows NAD[] Course & Med Decision Making Course & Med Decision Making Pertinent Labs and Imaging studies reviewed. (See chart for details) ED course: Patient was seen and examined emergency room cardiac workup was ordered on the patient 2030: Patient was updated on lab results and reevaluated in which she still feels depressed and anxious 2039: Discussed CC/HP/PMH with Dr. Mandujano and recommends admit and will transition care to Dr. Eason tomorrow [] Dragon Disclaimer Dragon Disclaimer This electronic medical record was generated, in whole or in part, using a voice recognition dictation system. Departure Departure Impression: Primary Impression: Anxiety Additional Impression: Depression Disposition: ADMITTED INPATIENT Admitting Physician: Canelo Eason Condition: STABLE Referrals: GI FINE Jr, MD (PCP) Problem Qualifiers RHODA ROBERTSON DO Dec 25, 2016 19:19
[2016-12-25] MEDS ORDERED: LORazepam 1 MG TABLET PO ONE (19:30)
[2016-12-25 20:12] LABS: BASO # 0.1 x10^3/uL (0.0-0.2); BASO % 1 % (0-3); EOS % 2 % (0-3); HEMATOCRIT 47.2 % (39.0-53.0); HEMOGLOBIN 15.7 g/dL (13.0-17.5); LYMPH # 2.2 x10^3/uL (1.0-4.8); LYMPH % 35 % (24-48); MEAN CORPUSCULAR HEMOGLOBIN 30 pg (25-35); MEAN CORPUSCULAR HGB CONC 33 g/dL (31-37); MEAN CORPUSCULAR VOLUME 91 fL (79-100); MONO % 11 % (0-9); NEUT % 51 % (31-73); PLATELET COUNT 147 x10^3/uL (140-400); RED BLOOD COUNT 5.19 x10^6/uL (4.30-5.70); RED CELL DISTRIBUTION WIDTH 13.9 % (11.5-14.5); WHITE BLOOD COUNT 6.2 x10^3/uL (4.0-11.0)
[2016-12-25 20:23] LABS: CALCIUM 8.8 mg/dL (8.5-10.1); CREATININE 0.8 mg/dL (0.7-1.3); GFR 92.5; POTASSIUM 3.9 mmol/L (3.5-5.1)
[2016-12-25 20:29] LABS: ALBUMIN 3.2 g/dL (3.4-5.0); TOTAL BILIRUBIN 0.9 mg/dL (0.2-1.0); TOTAL PROTEIN 6.3 g/dL (6.4-8.2)
[2016-12-25] MEDS ORDERED: ONDANSETRON PF 4 MG/2 ML VIAL. IV PRN (21:00)
[2016-12-25] MEDS ORDERED: MORPHINE SULFATE 4 MG/ML DISP.SYRIN. IV PRN (21:00)
[2016-12-25] MEDS ORDERED: ACETAMINOPHEN 325 MG TABLET. PO PRN (21:00)
[2016-12-25 22:35] VITALS: BP 151/72
--- NOTE | 2016-12-26 01:20 | ACF ---
Admission Forms Criteria PSYCHIATRIC DISORDERS Clinical Indications for Inpatient Care (Place 'X' for any and all applicable criteria): Ongoing inpatient care may be needed for 1 or more of the following(1)(2)(3)(4)( 6)(7)(8): [ ]I. Danger to self or others not manageable at lower level of care. [ ]II. Grave disability (eg, inability to perform self care necessary at lower level of care) [ ]III. Agitation or inappropriate behavior interfering with care for primary condition (eg, attempting to discontinue lines or drains prematurely, unable to cooperate with respiratory care) [X]IV. Severe disability or disorder indicated by ALL of the following: [X]a) Severe behavioral health disorder-related symptoms or condition indicated by 1 or more of the following: [ ]i) Severe problem with cognition, memory, judgment, or impulse control [X]ii) Severe clinical manifestations (eg, hallucinations, delusions, other acute psychotic symptoms, juanito, extreme agitation or anxiety) [X]b) Patient management at lower level of care is not feasible until acute intervention or modification is initiated. Extended stay beyond goal length of stay for the primary condition may be needed untilALLof the following are present(1)(2)(3)(4)(722)(23): [ ]a) Danger to self or others is absent or manageable at lower level of care [ ]b) Behavior crisis management, including physical or chemical restraints, is required and is not available at a lower level of care. [ ]c) Behavioral symptoms (e.g., agitation, somnolence, inappropriate behavior) are present, and are not manageable at a lower level of care. [ ]d) Patient cannot understand follow-up treatment and crisis plan. [ ]e) Provider and supports are sufficiently available at lower level of care. [ ]f) Patient can participate (e.g., verify absence of plan for harm) and is in needed of monitoring. The original [facility] content created by [facility] [employer] has been revised. The portions of the content which have been revised are identified through the use of italic text, and [employer] has neither reviewed nor approved the modified material. All other unmodified content is copyright [facility] [employer]. Please see references footnoted in the original [facility] edition 2015 Admission Criteria Met?: Yes KAMALA GREENFIELD Dec 26, 2016 01:20
[2016-12-26 03:20] VITALS: BP 120/44
[2016-12-26 05:30] LABS: BASO % 1 % (0-3); EOS % 3 % (0-3); HEMATOCRIT 44.3 % (39.0-53.0); HEMOGLOBIN 15.1 g/dL (13.0-17.5); LYMPH # 1.7 x10^3/uL (1.0-4.8); LYMPH % 39 % (24-48); MEAN CORPUSCULAR HEMOGLOBIN 30 pg (25-35); MEAN CORPUSCULAR HGB CONC 34 g/dL (31-37); MEAN CORPUSCULAR VOLUME 88 fL (79-100); MONO % 11 % (0-9); NEUT % 46 % (31-73); PLATELET COUNT 140 x10^3/uL (140-400); RED BLOOD COUNT 5.02 x10^6/uL (4.30-5.70); RED CELL DISTRIBUTION WIDTH 13.3 % (11.5-14.5); WHITE BLOOD COUNT 4.5 x10^3/uL (4.0-11.0)
[2016-12-26 05:59] LABS: CALCIUM 8.4 mg/dL (8.5-10.1); CREATININE 0.9 mg/dL (0.7-1.3); GFR 80.8; POTASSIUM 3.9 mmol/L (3.5-5.1)
--- NOTE | 2016-12-26 06:51 | EKG ---
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
[2016-12-26 07:00] VITALS: BP 106/55
--- NOTE | 2016-12-26 08:50 | RAD ---
Indication anxiety attack. Shortness of air. A single view of the chest was obtained and is compared to a study 02/06/2013. Heart size is at the upper limits of normal. There is no congestive heart failure or focal infiltrate. There is a granuloma in the right lung appearing unchanged. IMPRESSION: No acute or focal process seen in the chest.
[2016-12-26] MEDS: LORazepam 1 MG TABLET PO PRN ×3 (09:13→22:52)
--- NOTE | 2016-12-26 09:17 | PDOC1 ---
History and Physical Date of Admission Date of Admission DATE: 12/26/16 TIME: 09:11 Identification/Chief Complaint Chief Complaint Anxiety/Depression Problems: History of Present Illness History of Present Illness Fr. Cazares is a pleasant 81 y/o male who is known to me with a history of Anxiety/Depression, HTN, and GERD. Patient presented to the ER yesterday with anxiety/panic disorder. He has been seeing Dr. Ross Campos for his anxiety and depression. Recently he was started on a new medication by the Psychiatrist and then he changed. Yesterday morning he woke up more anxious than usual. He described feeling intense anxiety with palpitations and diaphoresis. He called his niece in the evening who came over and found him pacing around the room. His niece drove him to the ER. EKG showed normal sinus rhythm with a rate of 59 , no ST elevation. Normal Troponin levels. normal CXR. Patient received 2mg Ativan in the ER. Patient seen and examined today, he does c/o mild anxiety though much improved. Denies chest pain, SOB, abdominal pain, N/V, or paresthesia. Patient reports that he slept well last night after receiving the Ativan. No other complaints. Past Medical History Cardiovascular: HTN GI: Diverticulosis, GERD Psych: Anxiety, Depression Renal/: Benign prostatic enlarg. 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; Sober since 1984) Drugs: None Current Problem List Problem List Problems Medical Problems: (1) Anxiety Status: Acute (2) Depression Status: Acute Problems: Current Medications Current Medications Current Medications Lorazepam (Ativan) 1 mg 1X ONCE PO Last administered on 12/25/16t 19:43; Start 12/25/16 at 19:30; Stop 12/25/16 at 19:31; Status DC Ondansetron HCl (Zofran) 4 mg PRN Q8HRS PRN IV NAUSEA/VOMITING; Start 12/25/16 at 21:00; Stop 12/26/16 at 20:59 Morphine Sulfate 4 mg PRN Q2HR PRN IV SEVERE PAIN; Start 12/25/16 at 21:00; Stop 12/26/16 at 20:59 Acetaminophen (Tylenol) 650 mg PRN Q4HRS PRN PO FEVER; Start 12/25/16 at 21:00; Stop 12/26/16 at 20:59 Lorazepam (Ativan) 1 mg 1X ONCE IV Last administered on 12/25/16t 21:15; Start 12/25/16 at 21:15; Stop 12/25/16 at 21:16; Status DC Lorazepam (Ativan) 1 mg PRN Q6HRS PRN PO ANXIETY / AGITATION; Start 12/25/16 at 21:00 Active Scripts Active Reported Century Adults 50+ Tablet (Multivits-Min/Fa/Lycopene/Lut) 1 Each Tablet 1 Each PO DAILY [place] 3 Fish Oil Softgel ([place]-3 Fatty Acids/Fish Oil) 1 Each Capsule.dr 2 Each PO BID Finasteride 5 Mg Tablet 1 Tab PO DAILY Sotalol (Sotalol Hcl) 80 Mg Tablet 40 Mg PO BID Aspir 81 (Aspirin) 81 Mg Tablet.dr 1 Tab PO DAILY Pristiq ER (Desvenlafaxine Succinate) 25 Mg Tab.er.24h 150 Mg PO DAILY Slow-Mag (Magnesium Chloride) 71.5 Mg Tablet.dr 71.5 Mg PO BID Flomax (Tamsulosin Hcl) 0.4 Mg Cap.er.24h 0.8 Mg PO HS Omeprazole 20 Mg Tablet.dr 1 Tab PO BID Allergies Allergies: Coded Allergies: No Known Drug Allergies (Unverified , 07/20/16) Physical Exam General: Alert, Cooperative, No acute distress HEENT: PERRLA, EOMI, Mucous membr. moist/pink Lungs: Clear to auscultation Heart: other (Regular rate and rhythm. Normal S1 and S2, no S3, no S4. No murmurs) Abdomen: Normal bowel sounds, Soft, No tenderness Extremities: No cyanosis, No edema, Normal pulses Skin: No rashes, No significant lesion Neuro: Normal speech, Strength at 5/5 X4 ext, Sensation intact, Reflexes 2+ Vitals Vitals Vital Signs Date Time Temp Pulse Resp B/P (MAP) Pulse Ox O2 Delivery O2 Flow Rate FiO2 12/26/16 07:00 98.0 63 16 106/55 (72) 95 Room Air 98.0 Labs Labs Laboratory Tests Test 12/25/16 19:55 12/26/16 04:46 White Blood Count 6.2 x10^3/uL (4.0-11.0) 4.5 x10^3/uL (4.0-11.0) Red Blood Count 5.19 x10^6/uL (4.30-5.70) 5.02 x10^6/uL (4.30-5.70) Hemoglobin 15.7 g/dL (13.0-17.5) 15.1 g/dL (13.0-17.5) Hematocrit 47.2 % (39.0-53.0) 44.3 % (39.0-53.0) Mean Corpuscular Volume 91 fL (79-100) 88 fL (79-100) Mean Corpuscular Hemoglobin 30 pg (25-35) 30 pg (25-35) Mean Corpuscular Hemoglobin Concent 33 g/dL (31-37) 34 g/dL (31-37) Red Cell Distribution Width 13.9 % (11.5-14.5) 13.3 % (11.5-14.5) Platelet Count 147 x10^3/uL (140-400) 140 x10^3/uL (140-400) Neutrophils (%) (Auto) 51 % (31-73) 46 % (31-73) Lymphocytes (%) (Auto) 35 % (24-48) 39 % (24-48) Monocytes (%) (Auto) 11 % (0-9) 11 % (0-9) Eosinophils (%) (Auto) 2 % (0-3) 3 % (0-3) Basophils (%) (Auto) 1 % (0-3) 1 % (0-3) Neutrophils # (Auto) 3.1 x10^3uL (1.8-7.7) 2.0 x10^3uL (1.8-7.7) Lymphocytes # (Auto) 2.2 x10^3/uL (1.0-4.8) 1.7 x10^3/uL (1.0-4.8) Monocytes # (Auto) 0.7 x10^3/uL (0.0-1.1) 0.5 x10^3/uL (0.0-1.1) Eosinophils # (Auto) 0.1 x10^3/uL (0.0-0.7) 0.1 x10^3/uL (0.0-0.7) Basophils # (Auto) 0.1 x10^3/uL (0.0-0.2) 0.0 x10^3/uL (0.0-0.2) Sodium Level 143 mmol/L (136-145) 142 mmol/L (136-145) Potassium Level 3.9 mmol/L (3.5-5.1) 3.9 mmol/L (3.5-5.1) Chloride Level 106 mmol/L (98-107) 106 mmol/L (98-107) Carbon Dioxide Level 27 mmol/L (21-32) 29 mmol/L (21-32) Anion Gap 10 (6-14) 7 (6-14) Blood Urea Nitrogen 15 mg/dL (8-26) 14 mg/dL (8-26) Creatinine 0.8 mg/dL (0.7-1.3) 0.9 mg/dL (0.7-1.3) Estimated GFR (Cockcroft-Gault) 92.5 80.8 BUN/Creatinine Ratio 19 (6-20) Glucose Level 107 mg/dL (70-99) 107 mg/dL (70-99) Calcium Level 8.8 mg/dL (8.5-10.1) 8.4 mg/dL (8.5-10.1) Total Bilirubin 0.9 mg/dL (0.2-1.0) Aspartate Amino Transf (AST/SGOT) 21 U/L (15-37) Alanine Aminotransferase (ALT/SGPT) 33 U/L (16-63) Alkaline Phosphatase 77 U/L (46-116) Troponin I Quantitative < 0.017 ng/mL (0.000-0.055) Total Protein 6.3 g/dL (6.4-8.2) Albumin 3.2 g/dL (3.4-5.0) Albumin/Globulin Ratio 1.0 (1.0-1.7) Laboratory Tests Test 12/25/16 19:55 12/26/16 04:46 White Blood Count 6.2 x10^3/uL (4.0-11.0) 4.5 x10^3/uL (4.0-11.0) Red Blood Count 5.19 x10^6/uL (4.30-5.70) 5.02 x10^6/uL (4.30-5.70) Hemoglobin 15.7 g/dL (13.0-17.5) 15.1 g/dL (13.0-17.5) Hematocrit 47.2 % (39.0-53.0) 44.3 % (39.0-53.0) Mean Corpuscular Volume 91 fL (79-100) 88 fL (79-100) Mean Corpuscular Hemoglobin 30 pg (25-35) 30 pg (25-35) Mean Corpuscular Hemoglobin Concent 33 g/dL (31-37) 34 g/dL (31-37) Red Cell Distribution Width 13.9 % (11.5-14.5) 13.3 % (11.5-14.5) Platelet Count 147 x10^3/uL (140-400) 140 x10^3/uL (140-400) Neutrophils (%) (Auto) 51 % (31-73) 46 % (31-73) Lymphocytes (%) (Auto) 35 % (24-48) 39 % (24-48) Monocytes (%) (Auto) 11 % (0-9) 11 % (0-9) Eosinophils (%) (Auto) 2 % (0-3) 3 % (0-3) Basophils (%) (Auto) 1 % (0-3) 1 % (0-3) Neutrophils # (Auto) 3.1 x10^3uL (1.8-7.7) 2.0 x10^3uL (1.8-7.7) Lymphocytes # (Auto) 2.2 x10^3/uL (1.0-4.8) 1.7 x10^3/uL (1.0-4.8) Monocytes # (Auto) 0.7 x10^3/uL (0.0-1.1) 0.5 x10^3/uL (0.0-1.1) Eosinophils # (Auto) 0.1 x10^3/uL (0.0-0.7) 0.1 x10^3/uL (0.0-0.7) Basophils # (Auto) 0.1 x10^3/uL (0.0-0.2) 0.0 x10^3/uL (0.0-0.2) Sodium Level 143 mmol/L (136-145) 142 mmol/L (136-145) Potassium Level 3.9 mmol/L (3.5-5.1) 3.9 mmol/L (3.5-5.1) Chloride Level 106 mmol/L (98-107) 106 mmol/L (98-107) Carbon Dioxide Level 27 mmol/L (21-32) 29 mmol/L (21-32) Anion Gap 10 (6-14) 7 (6-14) Blood Urea Nitrogen 15 mg/dL (8-26) 14 mg/dL (8-26) Creatinine 0.8 mg/dL (0.7-1.3) 0.9 mg/dL (0.7-1.3) Estimated GFR (Cockcroft-Gault) 92.5 80.8 BUN/Creatinine Ratio 19 (6-20) Glucose Level 107 mg/dL (70-99) 107 mg/dL (70-99) Calcium Level 8.8 mg/dL (8.5-10.1) 8.4 mg/dL (8.5-10.1) Total Bilirubin 0.9 mg/dL (0.2-1.0) Aspartate Amino Transf (AST/SGOT) 21 U/L (15-37) Alanine Aminotransferase (ALT/SGPT) 33 U/L (16-63) Alkaline Phosphatase 77 U/L (46-116) Troponin I Quantitative < 0.017 ng/mL (0.000-0.055) Total Protein 6.3 g/dL (6.4-8.2) Albumin 3.2 g/dL (3.4-5.0) Albumin/Globulin Ratio 1.0 (1.0-1.7) VTE Prophylaxis Ordered VTE Prophylaxis Devices: No VTE Pharmacological Prophylaxi: No Assessment/Plan Assessment/Plan 1. Anxiety/Panic Disorder - Improving, Patient has history of Anxiety/ Depression. The present event with the panic attacks may be secondary to the med changes. the situation is a little better but is not under control yet. I am calling the Psychiatrist to see what med changes had been made and I also need to resume his cardiac meds specially the Sotalol to avoid problems again with the PAT. - EKG, Troponin, and CXR were normal, no further cardiac workup needed - Continue Ativan PRN anxiety - Resume home meds. HOLLY CASEY MD Dec 26, 2016 09:17
[2016-12-26 11:00] VITALS: BP 116/37
[2016-12-26 15:00] VITALS: BP 125/66
[2016-12-26] MEDS: PANTOPRAZOLE 40 MG TABLET.DR. PO SCH (17:36)
[2016-12-26 19:00] VITALS: BP 138/103
[2016-12-26] MEDS: OMEGA-3 FATTY ACIDS/FISH OIL 1,000 MG CAPSULE. PO SCH (22:52)
[2016-12-26] MEDS: TEMAZEPAM 15 MG CAPSULE PO PRN (22:52)
[2016-12-26] MEDS: TAMSULOSIN 0.4 MG CAP.ER.24H. PO SCH (22:52)
[2016-12-26] MEDS: SOTALOL 80 MG TABLET. PO SCH (22:53)
[2016-12-26 23:00] VITALS: BP 139/61
[2016-12-27 08:15] VITALS: BP 118/51
[2016-12-27] MEDS: MAGNESIUM CHLORIDE ER 64 MG TABLET.ER PO SCH ×2 (08:56)
[2016-12-27] MEDS: FINASTERIDE 5 MG TABLET. PO SCH (08:59)
[2016-12-27] MEDS: PANTOPRAZOLE 40 MG TABLET.DR. PO SCH ×2 (08:59→16:30)
[2016-12-27] MEDS: MULTIVITAMIN with MINERAL TABLET. PO SCH (08:59)
[2016-12-27] MEDS: OMEGA-3 FATTY ACIDS/FISH OIL 1,000 MG CAPSULE. PO SCH ×2 (08:59→20:54)
[2016-12-27] MEDS: ASPIRIN ENTERIC COATED 81 MG TABLET.DR. PO SCH (08:59)
[2016-12-27] MEDS ORDERED: DESVENLAFAXINE 25 MG TAB.ER.24H PO SCH (09:00)
[2016-12-27] MEDS: SOTALOL 80 MG TABLET. PO SCH ×2 (09:00→20:54)
[2016-12-27] MEDS: DESVENLAFAXINE 25 MG TAB.ER.24H PO SCH ×2 (10:00→20:53)
[2016-12-27 10:36] VITALS: BP 144/76
[2016-12-27] MEDS: LORazepam 1 MG TABLET PO PRN (10:59)
--- NOTE | 2016-12-27 11:19 | PDOC ---
PROGRESS NOTES Subjective Subjective Patient still c/o of mild anxiety today, improved from yesterday. Patient restarted on home meds. Denies Chest pain, SOB. No other complaints. Objective Objective Vital Signs Date Time Temp Pulse Resp B/P (MAP) Pulse Ox O2 Delivery O2 Flow Rate FiO2 12/27/16 10:36 97.7 59 19 144/76 (98) 95 Room Air 97.7 Intake and Output 12/28/16 07:00 Intake Total 500 ml Balance 500 ml Intake Oral 500 ml Physical Exam Abdomen: Normal bowel sounds, Soft, No tenderness Heart: Other (Regular rate and rhythm. Normal S1 and S2, no S3, no S4. No murmurs.) General: Alert, Cooperative Lungs: Clear to auscultation Assessment Assessment Problems Medical Problems: (1) Anxiety Status: Acute (2) Depression Status: Acute Plan Plan of Care 1. Anxiety/Panic Disorder - Improving, Patient has history of Anxiety/ Depression. Suspect acute episode may be due to recent psychiatric medication changes. I do not feel that is safe to discharge the pt until meds have been restarted and he has a good 48 hrs on the meds without problems. - EKG, Troponin, and CXR were normal, no further cardiac workup needed - Continue Ativan PRN anxiety - Continue home meds. - Pristiq 50mg BID - F/U Dr. Campos upon discharge. Comment Review of Relevant I have reviewed the following items orion (where applicable) has been applied. Labs Laboratory Tests Test 12/25/16 19:55 12/26/16 04:46 White Blood Count 6.2 x10^3/uL (4.0-11.0) 4.5 x10^3/uL (4.0-11.0) Red Blood Count 5.19 x10^6/uL (4.30-5.70) 5.02 x10^6/uL (4.30-5.70) Hemoglobin 15.7 g/dL (13.0-17.5) 15.1 g/dL (13.0-17.5) Hematocrit 47.2 % (39.0-53.0) 44.3 % (39.0-53.0) Mean Corpuscular Volume 91 fL (79-100) 88 fL (79-100) Mean Corpuscular Hemoglobin 30 pg (25-35) 30 pg (25-35) Mean Corpuscular Hemoglobin Concent 33 g/dL (31-37) 34 g/dL (31-37) Red Cell Distribution Width 13.9 % (11.5-14.5) 13.3 % (11.5-14.5) Platelet Count 147 x10^3/uL (140-400) 140 x10^3/uL (140-400) Neutrophils (%) (Auto) 51 % (31-73) 46 % (31-73) Lymphocytes (%) (Auto) 35 % (24-48) 39 % (24-48) Monocytes (%) (Auto) 11 % (0-9) 11 % (0-9) Eosinophils (%) (Auto) 2 % (0-3) 3 % (0-3) Basophils (%) (Auto) 1 % (0-3) 1 % (0-3) Neutrophils # (Auto) 3.1 x10^3uL (1.8-7.7) 2.0 x10^3uL (1.8-7.7) Lymphocytes # (Auto) 2.2 x10^3/uL (1.0-4.8) 1.7 x10^3/uL (1.0-4.8) Monocytes # (Auto) 0.7 x10^3/uL (0.0-1.1) 0.5 x10^3/uL (0.0-1.1) Eosinophils # (Auto) 0.1 x10^3/uL (0.0-0.7) 0.1 x10^3/uL (0.0-0.7) Basophils # (Auto) 0.1 x10^3/uL (0.0-0.2) 0.0 x10^3/uL (0.0-0.2) Sodium Level 143 mmol/L (136-145) 142 mmol/L (136-145) Potassium Level 3.9 mmol/L (3.5-5.1) 3.9 mmol/L (3.5-5.1) Chloride Level 106 mmol/L (98-107) 106 mmol/L (98-107) Carbon Dioxide Level 27 mmol/L (21-32) 29 mmol/L (21-32) Anion Gap 10 (6-14) 7 (6-14) Blood Urea Nitrogen 15 mg/dL (8-26) 14 mg/dL (8-26) Creatinine 0.8 mg/dL (0.7-1.3) 0.9 mg/dL (0.7-1.3) Estimated GFR (Cockcroft-Gault) 92.5 80.8 BUN/Creatinine Ratio 19 (6-20) Glucose Level 107 mg/dL (70-99) 107 mg/dL (70-99) Calcium Level 8.8 mg/dL (8.5-10.1) 8.4 mg/dL (8.5-10.1) Total Bilirubin 0.9 mg/dL (0.2-1.0) Aspartate Amino Transf (AST/SGOT) 21 U/L (15-37) Alanine Aminotransferase (ALT/SGPT) 33 U/L (16-63) Alkaline Phosphatase 77 U/L (46-116) Troponin I Quantitative < 0.017 ng/mL (0.000-0.055) Total Protein 6.3 g/dL (6.4-8.2) Albumin 3.2 g/dL (3.4-5.0) Albumin/Globulin Ratio 1.0 (1.0-1.7) Medications Current Medications Lorazepam (Ativan) 1 mg 1X ONCE PO Last administered on 12/25/16 19:43; Start 12/25/16 at 19:30; Stop 12/25/16 at 19:31; Status DC Ondansetron HCl (Zofran) 4 mg PRN Q8HRS PRN IV NAUSEA/VOMITING; Start 12/25/16 at 21:00; Stop 12/26/16 at 20:59; Status DC Morphine Sulfate 4 mg PRN Q2HR PRN IV SEVERE PAIN; Start 12/25/16 at 21:00; Stop 12/26/16 at 20:59; Status DC Acetaminophen (Tylenol) 650 mg PRN Q4HRS PRN PO FEVER; Start 12/25/16 at 21:00; Stop 12/26/16 at 20:59; Status DC Lorazepam (Ativan) 1 mg 1X ONCE IV Last administered on 12/25/16 21:15; Start 12/25/16 at 21:15; Stop 12/25/16 at 21:16; Status DC Lorazepam (Ativan) 1 mg PRN Q6HRS PRN PO ANXIETY / AGITATION Last administered on 12/27/16 10:59; Start 12/25/16 at 21:00 Aspirin (Ecotrin) 81 mg DAILYWBKFT PO Last administered on 12/27/16 08:59; Start 12/27/16 at 08:00 Desvenlafaxine Succinate (Pristiq Er) 150 mg DAILY PO ; Start 12/27/16 at 09:00; Stop 12/27/16 at 09:59; Status DC Finasteride (Proscar) 5 mg DAILY PO Last administered on 12/27/16 08:59; Start 12/27/16 at 09:00 Sotalol HCl (Betapace) 40 mg BID PO Last administered on 12/27/16 09:00; Start 12/26/16 at 21:00 Tamsulosin HCl (Flomax) 0.8 mg HS PO Last administered on 12/26/16 22:52; Start 12/26/16 at 21:00 Magnesium Chloride (Mag Delay) 64 mg DAILY PO Last administered on 12/27/16 08: 56; Start 12/27/16 at 09:00 Multivitamins (Thera M Plus) 1 tab DAILY PO Last administered on 12/27/16 08:59 ; Start 12/27/16 at 09:00 Fish Oil (Fish Oil) 2,000 mg BID PO Last administered on 12/27/16 08:59; Start 12/26/16 at 21:00 Pantoprazole Sodium (Protonix) 40 mg BIDAC PO Last administered on 12/27/16 08: 59; Start 12/26/16 at 17:30 Temazepam (Restoril) 15 mg PRN QHS PRN PO INSOMNIA Last administered on 22:52; Start 12/26/16 at 22:00 Desvenlafaxine Succinate (Pristiq Er) 50 mg BID PO Last administered on 10:00; Start 12/27/16 at 10:00 Active Scripts Active Reported Century Adults 50+ Tablet (Multivits-Min/Fa/Lycopene/Lut) 1 Each Tablet 1 Each PO DAILY [place] 3 Fish Oil Softgel ([place]-3 Fatty Acids/Fish Oil) 1 Each Capsule.dr 2 Each PO BID Finasteride 5 Mg Tablet 1 Tab PO DAILY Sotalol (Sotalol Hcl) 80 Mg Tablet 40 Mg PO BID Aspir 81 (Aspirin) 81 Mg Tablet. 1 Tab PO DAILY Pristiq ER (Desvenlafaxine Succinate) 25 Mg Tab.er.24h 150 Mg PO DAILY Slow-Mag (Magnesium Chloride) 71.5 Mg Tablet. 71.5 Mg PO BID Flomax (Tamsulosin Hcl) 0.4 Mg Cap.er.24h 0.8 Mg PO HS Omeprazole 20 Mg Tablet.dr 1 Tab PO BID Vitals/I & O Vital Sign - Last 24 Hours 12/26/16 12/26/16 12/26/16 12/26/16 15:00 19:00 20:00 22:53 Temp 98.2 98.1 98.2 98.1 Pulse 71 79 79 Resp 16 20 B/P (MAP) 125/66 (85) 138/103 (115) 138/103 Pulse Ox 95 95 O2 Delivery Room Air Room Air Room Air 12/26/16 12/27/16 12/27/16 12/27/16 23:00 08:00 08:15 09:00 Temp 96.8 97.8 96.8 97.8 Pulse 85 68 85 Resp 20 19 B/P (MAP) 139/61 (87) 118/51 (73) 139/61 Pulse Ox 94 91 O2 Delivery Room Air Room Air Room Air 12/27/16 10:36 Temp 97.7 97.7 Pulse 59 Resp 19 B/P (MAP) 144/76 (98) Pulse Ox 95 O2 Delivery Room Air Intake and Output 12/27/16 12/27/16 12/28/16 15:00 23:00 07:00 Intake Total 500 ml Balance 500 ml OHLLY CASEY MD Dec 27, 2016 11:19
[2016-12-27 14:52] VITALS: BP 119/66
[2016-12-27 19:58] VITALS: BP 113/60
[2016-12-27 19:59] VITALS: BP 113/60
[2016-12-27] MEDS: TEMAZEPAM 15 MG CAPSULE PO PRN (20:53)
[2016-12-27] MEDS: TAMSULOSIN 0.4 MG CAP.ER.24H. PO SCH (20:54)
[2016-12-27] MEDS: DEPLIN PO SCH (20:55)
[2016-12-28 07:20] VITALS: BP 115/70
[2016-12-28] MEDS: PANTOPRAZOLE 40 MG TABLET.DR. PO SCH ×2 (07:44→16:55)
[2016-12-28] MEDS: OMEGA-3 FATTY ACIDS/FISH OIL 1,000 MG CAPSULE. PO SCH ×2 (08:49→21:32)
[2016-12-28] MEDS: SOTALOL 80 MG TABLET. PO SCH ×2 (08:50→21:27)
[2016-12-28] MEDS: DESVENLAFAXINE 25 MG TAB.ER.24H PO SCH ×2 (08:50→21:27)
[2016-12-28] MEDS: MULTIVITAMIN with MINERAL TABLET. PO SCH (08:51)
[2016-12-28] MEDS: ASPIRIN ENTERIC COATED 81 MG TABLET.DR. PO SCH (08:51)
[2016-12-28] MEDS: FINASTERIDE 5 MG TABLET. PO SCH (08:51)
[2016-12-28] MEDS: MAGNESIUM CHLORIDE ER 64 MG TABLET.ER PO SCH ×2 (08:51)
[2016-12-28] MEDS: DEPLIN PO SCH (08:52)
[2016-12-28 11:00] VITALS: BP 126/88
--- NOTE | 2016-12-28 12:02 | PDOC ---
PROGRESS NOTES Subjective Subjective Patient still c/o mild anxiety today, though much improved. Patient reports that he is feeling the best since admission, but not ready to go home yet. Denies chest pain or SOB. No other complaints. Objective Objective Vital Signs Date Time Temp Pulse Resp B/P (MAP) Pulse Ox O2 Delivery O2 Flow Rate FiO2 12/28/16 11:00 97.7 89 20 126/88 (101) 95 Room Air 97.7 Intake and Output 12/29/16 07:00 Intake Total 180 ml Balance 180 ml Intake Oral 180 ml Physical Exam Physical Exam No significant changes to exam. Assessment Assessment Problems Medical Problems: (1) Anxiety Status: Acute (2) Depression Status: Acute Plan Plan of Care 1. Anxiety/Panic Disorder - Improving, Patient has history of Anxiety/ Depression. Suspect acute episode may be due to recent psychiatric medication changes. I do not feel that is safe to discharge the pt until meds have been restarted and he has a good 48 hrs on the meds without problems. - EKG, Troponin, and CXR were normal, no further cardiac workup needed - Continue Ativan PRN anxiety - Continue home meds. - Pristiq 50mg BID - [place] - F/U Dr. Campos upon discharge. Comment Review of Relevant I have reviewed the following items orion (where applicable) has been applied. Medications Current Medications Lorazepam (Ativan) 1 mg 1X ONCE PO Last administered on 12/25/16 19:43; Start 12/25/16 at 19:30; Stop 12/25/16 at 19:31; Status DC Ondansetron HCl (Zofran) 4 mg PRN Q8HRS PRN IV NAUSEA/VOMITING; Start 12/25/16 at 21:00; Stop 12/26/16 at 20:59; Status DC Morphine Sulfate 4 mg PRN Q2HR PRN IV SEVERE PAIN; Start 12/25/16 at 21:00; Stop 12/26/16 at 20:59; Status DC Acetaminophen (Tylenol) 650 mg PRN Q4HRS PRN PO FEVER; Start 12/25/16 at 21:00; Stop 12/26/16 at 20:59; Status DC Lorazepam (Ativan) 1 mg 1X ONCE IV Last administered on 12/25/16 21:15; Start 12/25/16 at 21:15; Stop 12/25/16 at 21:16; Status DC Lorazepam (Ativan) 1 mg PRN Q6HRS PRN PO ANXIETY / AGITATION Last administered on 12/27/16 10:59; Start 12/25/16 at 21:00 Aspirin (Ecotrin) 81 mg DAILYWBKFT PO Last administered on 12/28/16 08:51; Start 12/27/16 at 08:00 Desvenlafaxine Succinate (Pristiq Er) 150 mg DAILY PO ; Start 12/27/16 at 09:00; Stop 12/27/16 at 09:59; Status DC Finasteride (Proscar) 5 mg DAILY PO Last administered on 12/28/16 08:51; Start 12/27/16 at 09:00 Sotalol HCl (Betapace) 40 mg BID PO Last administered on 12/28/16 08:50; Start 12/26/16 at 21:00 Tamsulosin HCl (Flomax) 0.8 mg HS PO Last administered on 12/27/16 20:54; Start 12/26/16 at 21:00 Magnesium Chloride (Mag Delay) 64 mg DAILY PO Last administered on 12/28/16 08: 51; Start 12/27/16 at 09:00 Multivitamins (Thera M Plus) 1 tab DAILY PO Last administered on 12/28/16 08:51 ; Start 12/27/16 at 09:00 Fish Oil (Fish Oil) 2,000 mg BID PO Last administered on 12/28/16 08:49; Start 12/26/16 at 21:00 Pantoprazole Sodium (Protonix) 40 mg BIDAC PO Last administered on 12/28/16 07: 44; Start 12/26/16 at 17:30 Temazepam (Restoril) 15 mg PRN QHS PRN PO INSOMNIA Last administered on 20:53; Start 12/26/16 at 22:00 Desvenlafaxine Succinate (Pristiq Er) 50 mg BID PO Last administered on 08:50; Start 12/27/16 at 10:00 Non-Formulary Medication 1 ea DAILY PO Last administered on 12/28/16 08:52; Start 12/27/16 at 19:30 Active Scripts Active Reported Century Adults 50+ Tablet (Multivits-Min/Fa/Lycopene/Lut) 1 Each Tablet 1 Each PO DAILY [place] 3 Fish Oil Softgel ([place]-3 Fatty Acids/Fish Oil) 1 Each Capsule.dr 2 Each PO BID Finasteride 5 Mg Tablet 1 Tab PO DAILY Sotalol (Sotalol Hcl) 80 Mg Tablet 40 Mg PO BID Aspir 81 (Aspirin) 81 Mg Tablet.dr 1 Tab PO DAILY Pristiq ER (Desvenlafaxine Succinate) 25 Mg Tab.er.24h 150 Mg PO DAILY Slow-Mag (Magnesium Chloride) 71.5 Mg Tablet.dr 71.5 Mg PO BID Flomax (Tamsulosin Hcl) 0.4 Mg Cap.er.24h 0.8 Mg PO HS Omeprazole 20 Mg Tablet.dr 1 Tab PO BID Vitals/I & O Vital Sign - Last 24 Hours 12/27/16 12/27/16 12/27/16 12/27/16 14:52 19:59 20:00 20:54 Temp 98.8 98.6 98.8 98.6 Pulse 65 62 62 Resp 20 18 B/P (MAP) 119/66 (83) 113/60 (77) 113/60 Pulse Ox 94 94 O2 Delivery Room Air Room Air Room Air 12/27/16 12/28/16 12/28/16 12/28/16 23:58 02:55 07:20 08:09 Temp 97.6 97.6 Pulse 60 Resp 15 B/P (MAP) 115/70 (85) Pulse Ox 92 O2 Delivery Room Air Room Air Room Air Room Air 12/28/16 12/28/16 08:50 11:00 Temp 97.7 97.7 Pulse 60 89 Resp 20 B/P (MAP) 115/70 126/88 (101) Pulse Ox 95 O2 Delivery Room Air Intake and Output 12/28/16 12/28/16 12/29/16 15:00 23:00 07:00 Intake Total 180 ml Balance 180 ml HOLLY CASEY MD Dec 28, 2016 12:02
[2016-12-28 14:55] VITALS: BP 112/52
[2016-12-28] MEDS: LORazepam 1 MG TABLET PO PRN (18:17)
[2016-12-28 19:25] VITALS: BP 104/52
[2016-12-28] MEDS: TEMAZEPAM 15 MG CAPSULE PO PRN (21:27)
[2016-12-28] MEDS: TAMSULOSIN 0.4 MG CAP.ER.24H. PO SCH (21:27)
[2016-12-28 23:11] VITALS: BP 96/37
[2016-12-29 07:44] VITALS: BP 111/58
[2016-12-29] MEDS: PANTOPRAZOLE 40 MG TABLET.DR. PO SCH (07:51)
[2016-12-29] MEDS: SOTALOL 80 MG TABLET. PO SCH (09:04)
[2016-12-29] MEDS: MAGNESIUM CHLORIDE ER 64 MG TABLET.ER PO SCH ×2 (09:05)
[2016-12-29] MEDS: DESVENLAFAXINE 25 MG TAB.ER.24H PO SCH (09:06)
[2016-12-29] MEDS: OMEGA-3 FATTY ACIDS/FISH OIL 1,000 MG CAPSULE. PO SCH (09:07)
[2016-12-29] MEDS: MULTIVITAMIN with MINERAL TABLET. PO SCH (09:07)
[2016-12-29] MEDS: FINASTERIDE 5 MG TABLET. PO SCH (09:08)
[2016-12-29] MEDS: ASPIRIN ENTERIC COATED 81 MG TABLET.DR. PO SCH (09:08)
[2016-12-29] MEDS: DEPLIN PO SCH (09:09)
[2016-12-29 11:37] VITALS: BP 115/65
[2016-12-29 15:00] VITALS: BP 118/77
--- NOTE | 2016-12-29 15:37 | PDOC3 ---
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 Campos. He had been doing rather well but some of his medications where changed including initiating a new med. After that was done patient started developing acute panic attacks that were rather severe and this brought him to the hospital. He appeared to be very depressed in between the appendix attacks and was not able to control his anxiety. Once he was admitted the patient's medications were adjusted and gradually he began to improve. This was a slow process but today he appears to be stable and back to previous regular self. The medications had been presumed including the new medicines and he appears to be ready to go home. The patient will be discharged on his current meds please see the MRAD for the list of medications and I'm also going to start him on Ativan 1 mg by mouth every 8 hours as needed. He is to follow-up with the psychiatrist next week and to see me the following week. Disposition/Orders: D/C to Home CONDITION AT DISCHARGE: Improved Scheduled Aspirin (Aspir 81), 1 TAB PO DAILY, (Reported) Desvenlafaxine Succinate (Pristiq ER), 50 MG PO BID, (Reported) Finasteride (Finasteride), 1 TAB PO DAILY, (Reported) Magnesium Chloride (Slow-Mag), 71.5 MG PO BID, (Reported) Multivits-Min/Fa/Lycopene/Lut (Century Adults 50+ Tablet), 1 EACH PO DAILY, ( Reported) [place]-3 Fatty Acids/Fish Oil ([place] 3 Fish Oil Softgel), 2 EACH PO BID, ( Reported) Omeprazole (Omeprazole), 1 TAB PO BID, (Reported) Sotalol Hcl (Sotalol), 40 MG PO BID, (Reported) Tamsulosin Hcl (Flomax), 0.8 MG PO HS, (Reported) Time Spent Total time spent with patient [] minutes for coordination of care, counseling, and education. HOLLY CASEY MD Dec 29, 2016 15:37
== END 2016-12-29 15:07 | disposition home or self-care (01) | DRG 880 ==
LOC: ER 18:28 → 6 SOUTH 20:41
PROVIDERS: ADMIT Internal Medicine Cardiovascular Disease; ATTEND Internal Medicine Cardiovascular Disease
DX: F41.9 Anxiety disorder, unspecified (principal); I10 Essential (primary) hypertension; F41.0 Panic disorder [episodic paroxysmal anxiety]; F32.9 Major depressive disorder, single episode, unspecified; K57.90 Diverticulosis of intestine, part unspecified, without perforation or abscess without bleeding; K21.9 Gastro-esophageal reflux disease without esophagitis; Z83.3 Family history of diabetes mellitus; Z79.82 Long term (current) use of aspirin; Z90.49 Acquired absence of other specified parts of digestive tract; Z87.891 Personal history of nicotine dependence; Z90.89 Acquired absence of other organs; T43.205A Adverse effect of unspecified antidepressants, initial encounter
CPT/HCPCS: 36415; 71010; 80048; 80053; 84484; 85025; 93005; J2060; 99285-25